=== PATIENT | female | born 1940 | race Caucasian/White ===

== ENCOUNTER → 2019-04-16 | Outpatient (CLI) | payer OTHER ==
[~2019-04-16] VITALS: Ht 167.6 cm; Wt 79.4 kg
[~2019-04-16] MED LIST: CARDIZEM CD120 MG PO; CENTRUM SILVER1 EAC4 PO; CENTRUM SILVER1 EAC6 PO; CLOPIDOGREL75 MG PO; ECOTRIN325 MG PO; ELIQUIS5 MG PO; FENTANYL PA12 MCG/HR TP; FISH OIL 1,001000 M2 PO; FLOMAX0.4 MG PO; GABAPENTIN100 MG PO; HYDROCODON-ACE1 EAC5 PO; KEFLEX500 MG PO; LASIX 40 MG TAB40 M2 PO; LEVOXYL50 MCG PO; LEVOXYL75 MCG PO; LIPITOR 20 MG T20 M1 PO; LOPRESSOR 12.12.5 MG PO; LOPRESSOR25 PO; NEURONTIN 400400 M1 PO; NEURONTIN300 MG PO; NORTRIPTYLINE H25 M3 PO; POTASSIUM20 PO; SENNA PLUS TAB1 EACH PO; SORINE 80 MG TA80 M1 PO; SYNTHROID88 MC1 PO; TRAMADOL 50 MG50 MG PO; TYLENOL EXTRA500 MG PO; VITAMIN E400 UNIT PO; VITAMINC500 PO
[2019-04-16 07:06] VITALS: BP 172/75
[2019-04-16 07:14] LABS: HEMATOCRIT 47.3 % (37.0-47.0); HEMOGLOBIN 14.4 gm/dL (12.0-15.0); MCH 23.2 pg (26.0-34.0); MCHC 30.4 g/dL (28.0-37.0); MCV 76.5 fL (80.0-100.0); PLATELET COUNT 247 thou/uL (150-400); RBC 6.19 mil/uL (4.20-5.00); RDW 18.5 % (10.5-14.5); WBC 22.3 thou/uL (4.0-11.0)
[2019-04-16 07:20] LABS: CALCIUM 9.3 mg/dL (8.5-10.1); CREATININE 0.7 mg/dL (0.6-1.0); POTASSIUM 4.7 mmol/L (3.5-5.1)
[2019-04-16 11:33] LABS: ALBUMIN 4.4 g/dL (3.4-5.0); DIRECT BILIRUBIN 0.2 mg/dL (<0.1-0.3); TOTAL BILIRUBIN 0.6 mg/dL (<0.1-1.0); TOTAL PROTEIN 7.1 g/dL (6.4-8.2)
[2019-04-16 11:38] LABS: APTT 33.3 Seconds (24.5-32.8); INR 1.2; PROTIME 12.4 Seconds (9.3-11.4)
[2019-04-16 11:39] LABS: ABSOLUTE NEUTROPHILS 15.8 thou/uL (1.4-8.2); PLATELET ESTIMATE NORMAL
[2019-04-16 12:30] VITALS: BP 159/82
[2019-04-16 12:33] VITALS: BP 172/82
[2019-04-16 12:35] VITALS: BP 166/84
[2019-04-16 12:40] VITALS: BP 166/83
[2019-04-16 12:45] VITALS: BP 175/86
[2019-04-16 14:15] LABS: URINE BILIRUBIN NEGATIVE (Negative); URINE BLOOD NEGATIVE (Negative); URINE CLARITY CLEAR; URINE COLOR YELLOW; URINE GLUCOSE-RANDOM* NEGATIVE (Negative); URINE KETONES NEGATIVE (Negative); URINE LEUKOCYTES-REFLEX NEGATIVE (Negative); URINE NITRITE-REFLEX NEGATIVE (Negative); URINE PROTEIN (DIPSTICK) 2+ (Negative); URINE SPECIFIC GRAVITY 1.015 (1.005-1.035); URINE UROBILINOGEN 0.2 E.U./dl (0.2-1.0)
[2019-04-16 14:28] LABS: BACTERIA-REFLEX 1-9 Few /HPF (None Seen); CASTS None Seen /LPF (None Seen); CRYSTALS None Seen /LPF (None Seen); SQUAMOUS 0-3 Few /LPF (0-3); URINE RBC None Seen /HPF (0-2); URINE WBC-REFLEX None Seen /HPF (0-5)
--- NOTE | 2019-04-17 14:06 | EKG ---
[place] [address] [address] [facility] [place] [address] ELECTROCARDIOGRAM REPORT Name: FILIBERTOVIJAYJAMES [id number] Admission: 04/16/19 Attend Phys: Ovidio Alejandra MD Discharge: Date of : 40 Report #: [id number] THIS REPORT FOR: //name// [facility] Test Date: 2019-04-16 Test Time: 11:25:38 Pat Name: JAMES NIÑO Department: Room: Gender: F Powertrain Design Engineer: Chaparrita MITCHELL : 1940 Requested By: Vinny Le Order Number: [id number] MD: Дмитрий Timmons Measurements Intervals [place] Rate: 61 P: 31 WA: 234 QRS: -10 QRSD: 101 T: 21 QT: 421 QTc: 424 Interpretive Statements Sinus rhythm Prolonged WA interval Probable left atrial enlargement Compared to ECG 08/04/2007 09:21:40 First degree AV block now present Electronically Signed On 04-17-2019 14:06:16 CDT by Дмитрий Timmons [email or web address] <ELECTRONICALLY SIGNED> By: Дмитрий Timmons MD 04/17/19 1406 1125 1125 Дмитрий Timmons MD /[facility]
--- NOTE | 2019-04-17 14:38 | HC ---
[facility] [place] [address] CONSULTATION Name: JAMES NIÑO Room #: REG BRENDAN GonzalesBrenda#: [id number] Admission: 04/16/19 Attend Phys: Ovidio Alejandra MD Discharge: Date of : 40 Report #: [id number] THIS REPORT FOR: //name// CC: Ovidio Norris DATE OF SERVICE: 04/16/2019 We were asked by Dr. Alejandra to see the patient. HISTORY OF PRESENT ILLNESS: The patient is a 79-year-old with rest pain in the left foot. The patient has a history of peripheral arterial occlusive disease and appears to have had a left femoral to above the knee popliteal bypass with a plastic conduit several years ago. The patient admits to chronic rest pain in the left foot, but this worsened over the last few weeks. 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 This appears to have been done after infection for an artificial ankle prosthesis. PAST MEDICAL HISTORY: Significant for polycythemia vera and atrial fibrillation. MEDICATIONS: Includes Tylenol for pain, Eliquis, Plavix, Lipitor, diltiazem, Neurontin, levothyroxine, sotalol, and tamsulosin. ALLERGIES: The patient denies drug allergies to me. SOCIAL HISTORY: The patient is a former smoker, but quit years ago. FAMILY HISTORY: Father had a precocious heart attack at age 45. REVIEW OF SYSTEMS: GENERAL: No significant weight change or fever. EYES: No vision change. HENT: No headache, no new hearing loss. No sinus problems. CARDIAC: Denies chest pain or palpitations. Does have atrial fibrillation. RESPIRATORY: Denies cough, shortness of breath. GASTROINTESTINAL: No nausea, vomiting, blood in stool. GENITOURINARY: No urgency, frequency, or blood. MUSCULOSKELETAL: Foot pain, but not arthritic in nature. SKIN: No rash or infection. ENDOCRINE: No hot or cold intolerance. No goiter or tremor. NEUROLOGIC: No motor or sensory dysfunction. HEMATOLOGIC: No bruisability or purpura. [facility] [address] [place] [address] CONSULTATION Name: AJMES NIÑO Room #: SABINA Sinclair#: [id number] Admission: 04/16/19 Attend Phys: Ovidio Alejandra MD Discharge: Date of : 40 Report #: [id number] PHYSICAL EXAMINATION: EXTREMITIES: The patient is lying in bed after her arteriogram today, seems to be comfortable. HEENT: Normocephalic. Pupils are round, equal. No arcus, no icterus. NECK: No mass, no bruit. CHEST: Clear. HEART: Rhythm seems to be regular. ABDOMEN: Soft, no mass, no tenderness. EXTREMITIES: We note the right hllgc-qsy-dtdz amputation on the left side. Left femoral pulse is 2+. No popliteal, dorsalis pedis or posterior tibial pulses. Left foot has dependent rubor, but no specific ulceration or gangrene is noted. I reviewed the arteriographic findings with the patient. There is total occlusion of the left superficial femoral artery with reconstitution of the polyp popliteal artery. I recommended a femoral to popliteal bypass with autogenous greater saphenous vein. If this is available, we will perform a vein mapping and also check the patient's P2Y12 for her response to Plavix. I also suggested the patient have Cardiac evaluation prior to lower extremity bypass surgery. Risks and details of bypass surgery were discussed. These include but are not limited to bleeding, infection, anesthesia risks, and of course failure of the graft. Options and alternatives were reviewed. The patient understands all of this and is eager to attempt to address her debilitating symptoms. Thank you for the consult. <ELECTRONICALLY SIGNED> By: Vinny Le MD 04/17/19 1438 1119 0018 Vinny Le MD /nt
== END | disposition home or self-care (01) ==
LOC: CATH 06:13 → SPEC 06:13 → CATH 11:54
PROVIDERS: Nuclear Medicine Nuclear Cardiology; Surgery Vascular Surgery
DX: I73.9 Peripheral vascular disease, unspecified (principal); T82.858A Stenosis of other vascular prosthetic devices, implants and grafts, initial encounter; I70.1 Atherosclerosis of renal artery; Z01.810 Encounter for preprocedural cardiovascular examination; I10 Essential (primary) hypertension; E78.5 Hyperlipidemia, unspecified; I48.91 Unspecified atrial fibrillation; E66.09 Other obesity due to excess calories; E78.00 Pure hypercholesterolemia, unspecified; Z79.01 Long term (current) use of anticoagulants; Z79.899 Other long term (current) drug therapy; Z98.890 Other specified postprocedural states; Z87.891 Personal history of nicotine dependence; Z95.0 Presence of cardiac pacemaker; Z88.2 Allergy status to sulfonamides; Z82.49 Family history of ischemic heart disease and other diseases of the circulatory system; Y83.8 Other surgical procedures as the cause of abnormal reaction of the patient, or of later complication, without mention of misadventure at the time of the procedure

== ENCOUNTER → 2019-05-03 | Outpatient (CLI) | payer OTHER | LOC: NUC 07:50 | DX: I48.91 Unspecified atrial fibrillation (principal); E78.5 Hyperlipidemia, unspecified; I10 Essential (primary) hypertension; Z87.891 Personal history of nicotine dependence; Z79.899 Other long term (current) drug therapy ==

== ENCOUNTER 2019-05-18 05:46 | Inpatient (IN) | payer OTHER ==
[2019-05-07 09:24] LABS: HEMATOCRIT 46.8 % (37.0-47.0); HEMOGLOBIN 14.2 gm/dL (12.0-15.0); MCH 22.9 pg (26.0-34.0); MCHC 30.4 g/dL (28.0-37.0); MCV 75.3 fL (80.0-100.0); PLATELET COUNT 208 thou/uL (150-400); RBC 6.22 mil/uL (4.20-5.00); RDW 19.4 % (10.5-14.5); WBC 22.7 thou/uL (4.0-11.0)
[2019-05-07 09:39] LABS: INR 1.2
[2019-05-07 09:41] LABS: ALBUMIN 4.3 g/dL (3.4-5.0); CALCIUM 9.1 mg/dL (8.5-10.1); CREATININE 0.7 mg/dL (0.6-1.0); POTASSIUM 4.9 mmol/L (3.5-5.1); TOTAL BILIRUBIN 0.6 mg/dL (<0.1-1.0); TOTAL PROTEIN 6.7 g/dL (6.4-8.2)
[2019-05-07 10:00] LABS: URINE BILIRUBIN 2+ (Negative); URINE BLOOD NEGATIVE (Negative); URINE CLARITY CLEAR; URINE COLOR YELLOW; URINE GLUCOSE-RANDOM* NEGATIVE (Negative); URINE KETONES NEGATIVE (Negative); URINE LEUKOCYTES NEGATIVE (Negative); URINE NITRITE NEGATIVE (Negative); URINE PROTEIN (DIPSTICK) 2+ (Negative); URINE SPECIFIC GRAVITY 1.025 (1.005-1.035); URINE UROBILINOGEN 0.2 E.U./dl (0.2-1.0)
[2019-05-07 10:12] LABS: BACTERIA 1-9 Few /HPF (None Seen); CASTS None Seen /LPF (None Seen); CRYSTALS None Seen /LPF (None Seen); SQUAMOUS 0-3 Few /LPF (0-3); URINE RBC None Seen /HPF (0-2); URINE WBC None Seen /HPF (0-5)
[2019-05-07 10:13] LABS: ICTOTEST (BILI CONFIRMATORY) Negative (Negative)
[2019-05-07 10:34] LABS: ABSOLUTE NEUTROPHILS 15.7 thou/uL (1.4-8.2); ANISOCYTOSIS 2+; MICROCYTES 2+; NUCLEATED RBCS 1 /100WBC; PLATELET ESTIMATE NORMAL; POLYCHROMASIA 1+
--- NOTE | 2019-05-07 17:15 | EKG ---
[place] [address] [facility] [facility] [place] [address] ELECTROCARDIOGRAM REPORT Name: JAMES NIÑO Room #: PRE IN [facility].#: [id number] Admission: Attend Phys: Vinny Le MD Discharge: Date of : 40 Report #: [id number] THIS REPORT FOR: //name// [facility] Test Date: 2019-05-07 Test Time: 09:57:11 Pat Name: JAMES NIÑO Department: Room: Gender: F Paper Box Maker: annamarie : 1940 Requested By: Vinny Le Order Number: [id number] MD: Yash Franklin Measurements Intervals [place] Rate: 63 P: 41 HI: 224 QRS: -2 QRSD: 104 T: 36 QT: 413 QTc: 423 Interpretive Statements Sinus rhythm Prolonged HI interval Baseline wander in lead(s) I,III,aVL Compared to ECG 04/16/2019 11:25:38 No significant changes Electronically Signed On 05-07-2019 17:15:26 CDT by Yash Franklin [email or web address] <ELECTRONICALLY SIGNED> By: Yash Franklin MD, [facility] 05/07/19 1715 Yash Franklin MD, [facility] /EPI
[2019-05-18] VITALS (18 sets, daily range): BP systolic 114–149; BP diastolic 39–65
[~2019-05-18] VITALS: Ht 167.6 cm; Wt 36.1 kg
[~2019-05-18 05:46] MED LIST changes: -SENNA PLUS TAB1 EACH PO
[2019-05-18 07:31] LABS: HEMATOCRIT 48.9 % (37.0-47.0); HEMOGLOBIN 14.7 gm/dL (12.0-15.0); MCH 22.6 pg (26.0-34.0); MCV 75.3 fL (80.0-100.0); RBC 6.49 mil/uL (4.20-5.00); RDW 19.3 % (10.5-14.5); WBC 29.6 thou/uL (4.0-11.0)
--- NOTE | 2019-05-18 19:58 | NUR ---
PT ARRIVED FROM PACU AT 1645. PLACED ON MONITOR. HOSPITALIST ROUNDED, WANTS MED REC FROM [facility]. PT CONFUSED, JABBERS AND TRYING TO BE FUNNY WITH ANSWERS. STATES SHE IS LIKE THAT AFTER ANETHSTESIA. UNABLE TO SWALLOW PAIN PILL, USE PRN FENT.
[2019-05-18 20:15] LABS: CREATININE 0.8 mg/dL (0.6-1.0); POTASSIUM 4.1 mmol/L (3.5-5.1)
[2019-05-18 20:16] LABS: HEMATOCRIT 42.5 % (37.0-47.0); MCH 22.4 pg (26.0-34.0); MCV 74.9 fL (80.0-100.0); RBC 5.68 mil/uL (4.20-5.00); RDW 19.1 % (10.5-14.5)
[2019-05-18 20:17] LABS: HEMOGLOBIN 12.7 gm/dL (12.0-15.0)
[2019-05-19] VITALS (27 sets, daily range): BP systolic 101–139; BP diastolic 30–53
[2019-05-19 05:27] LABS: HEMATOCRIT 39.5 % (37.0-47.0); HEMOGLOBIN 11.5 gm/dL (12.0-15.0); MCH 22.2 pg (26.0-34.0); MCHC 29.2 g/dL (28.0-37.0); RBC 5.19 mil/uL (4.20-5.00); RDW 19.3 % (10.5-14.5); WBC 30.8 thou/uL (4.0-11.0)
[2019-05-19 05:50] LABS: CALCIUM 7.6 mg/dL (8.5-10.1); CREATININE 0.7 mg/dL (0.6-1.0); POTASSIUM 4.4 mmol/L (3.5-5.1)
--- NOTE | 2019-05-19 11:15 | NUR ---
Pt was alert but could not tell time correctly. Pt is confused by telling this nurse such as, "Are you looking for ED? I will tell you how to get there." However pt followed the commands appropriately and seemed very forgetful. VSS. Wound vac x2 and ERIN drainage x [address] Dressing CDI. Pt was on restraints x 2 due to picking up the dressings and skin around dressings. 0830- Pt's restraints were off while pt's was at bedside. Pt shared her breakfast w/ . The medical record request for pt was faxed to [facility].
[2019-05-19 12:36] LABS: URINE BILIRUBIN NEGATIVE (Negative); URINE BLOOD NEGATIVE (Negative); URINE CLARITY CLEAR; URINE COLOR YELLOW; URINE GLUCOSE-RANDOM* NEGATIVE (Negative); URINE KETONES NEGATIVE (Negative); URINE LEUKOCYTES-REFLEX TRACE (Negative); URINE NITRITE-REFLEX NEGATIVE (Negative); URINE PROTEIN (DIPSTICK) 1+ (Negative); URINE SPECIFIC GRAVITY 1.025 (1.005-1.035); URINE UROBILINOGEN 0.2 E.U./dl (0.2-1.0)
[2019-05-19 12:47] LABS: BACTERIA-REFLEX None Seen /HPF (None Seen); SQUAMOUS 0-3 Few /LPF (0-3); URINE RBC 3-10 Few /HPF (0-2); URINE WBC-REFLEX 0-5 Rare /HPF (0-5)
[2019-05-19 12:48] LABS: CRYSTALS None Seen /LPF (None Seen); FINE GRANULAR CASTS 0-3 Few /LPF (None Seen)
--- NOTE | 2019-05-19 16:02 | HC ---
[facility] [place] [address] CONSULTATION Name: JAMES NIÑO Room #: 238-P ADM IN M.R.#: [id number] Admission: 05/18/19 Attend Phys: Vinny Le MD Discharge: Date of : 40 Report #: [id number] THIS REPORT FOR: //name// CC: Liliam Le DATE OF SERVICE: 05/19/2019 ATTENDING PHYSICIAN: Vinny Le MD REASON FOR EVALUATION: Postoperative leukocytosis. HISTORY OF PRESENT ILLNESS: Chart reviewed, patient examined. This is a 79-year-old, known history of vasculopathy, also polycythemia, underwent operative reopening of left femoral to popliteal artery bypass with reverse greater saphenous vein and intraoperative arteriogram on 05/18/2019, referral from outpatient, it is notable that previous amputation of the right lower extremity, seen postop day 1, was found to have a markedly elevated white count, initially 29,600, peaked to 39,000, now 99017, as would expected has an elevated red cell count as well. She is mildly encephalopathic. Denies significant amount of pain at this point. She is on supplemental oxygen per nasal cannula, saturation 100%. She is normally not on oxygen. Additional evaluation included urinalysis. She was empirically started on therapy with vancomycin. ALLERGIES: LISTED TO SULFA. CURRENT MEDICATIONS: Include clopidogrel, tamsulosin, vancomycin, levothyroxine, gabapentin, famotidine, diltiazem CD, atorvastatin, p.r.n. analgesics and antiemetics. PAST MEDICAL HISTORY: History of atrial fibrillation, known peripheral vascular disease, polycythemia and hypercholesterolemia. SOCIAL HISTORY: Occasional ethanol, nonsmoker. No illicit drug use. FAMILY HISTORY: Noncontributory. REVIEW OF SYSTEMS: As above. Denies gastrointestinal related complaints. PHYSICAL EXAMINATION: GENERAL: She appears somewhat chronically ill, mildly undernourished. VITAL SIGNS: Temperature 97.7, pulse 67, respirations 15, blood pressure 118/47. SKIN: Warm, dry, no rashes. HEENT: Nasal cannula in place. Normocephalic. Extraocular muscles intact. NECK: Supple. [facility] [address] [place] [address] CONSULTATION Name: JAMES NIÑO Room #: 238-P [facility] IN M.R.#: [id number] Admission: 05/18/19 Attend Phys: Vinny Le MD Discharge: Date of : 40 Report #: [id number] LUNGS: Few scattered coarse breath sounds. Nothing for consolidation. HEART: Irregular. Does have a very pronounced systolic murmur. ABDOMEN: Mildly distended, soft, nontender. EXTREMITIES: Left lower extremity has a superficial wound VAC in place that runs longitudinally and extend to the saphenous vein site as well as the bypass site distally has a drain in place. GENITOURINARY/RECTAL: Deferred. LABORATORY DATA: Initial white count of 29.6. Serial white count last evening 39.0, repeat was 30.8, H and H 11.5 and 39.5, platelets of 201. Electrolytes: Sodium 139, potassium 4.4, chloride 105, bicarbonate is 27, anion gap of 7, BUN and creatinine 21 and 0.7. ASSESSMENT AND PLAN: Leukocytosis in a patient that is postoperative. Per the family, this is not unusual for her. She does not show evidence of early sepsis. There is no focal area of pyogenic infection that I could see. We will check a urinalysis given her gram-positive coverage and liver function test to exclude possibility of a biliary tract issue. Otherwise, we will keep empiric therapy with vancomycin. We will follow the white count. Hopefully, it is trending down. <ELECTRONICALLY SIGNED> By: Rodolfo Sharma MD 05/19/19 1602 0959 1320 Rodolfo Sharma MD /nt
[2019-05-19 17:36] LABS: ALBUMIN 3.3 g/dL (3.4-5.0); DIRECT BILIRUBIN < 0.1 mg/dL (<0.1-0.3); SGOT 60 U/L (15-37); SGPT 11 U/L (30-65); TOTAL BILIRUBIN 0.4 mg/dL (<0.1-1.0); TOTAL PROTEIN 5.4 g/dL (6.4-8.2)
[2019-05-20] VITALS (24 sets, daily range): BP systolic 106–156; BP diastolic 32–78
--- NOTE | 2019-05-20 00:30 | NUR ---
LATE ENTRY AT 2315 PT EXTREMELY RESTLESS THROWING LEGS OVER SIDE OF BED. WANTING TO GET OUT OF BED AND STILL C/O OF PAIN ALL OVER. PARKING ENFORCER NOTIFIED. ATIVAN 1 MG IV AND FENTANYL 50 MCG GIVEN ORDERED. WILL CONT TO MONITOR CLOSELY.
--- NOTE | 2019-05-20 06:27 | NUR ---
190: Received report from ALEXANDER Tse and assumed patient care. Patient is AAOx2 (name and situation) and noted to be on 2 L NC at this time. 2109: Patient medicated at this time for complaints of pain 02/24 along with scheduled meds. 2339: Patient resting with eyes shut and in no apparent distress. Will continue to monitor closely. 0115: Patient is lying in be awake. No distress is noted. Purewick cather placed on patient at this time. 0324: Patient is very anxious at this time and is stating she has pain in her right shoulder. Patient given hydrocodone at this time. 0522: Patient is awake and is remembering more about place and time after being reoriented several times throughout this shift. 0700: Report given to oncoming RN. Care relinquished.
[2019-05-20 07:26] LABS: HEMATOCRIT 37.1 % (37.0-47.0); MCH 22.4 pg (26.0-34.0); MCHC 29.6 g/dL (28.0-37.0); MCV 75.7 fL (80.0-100.0); PLATELET COUNT 184 thou/uL (150-400); RDW 19.1 % (10.5-14.5); WBC 21.9 thou/uL (4.0-11.0)
[2019-05-20 08:58] LABS: ABSOLUTE NEUTROPHILS 15.8 thou/uL (1.4-8.2); METAMYELOCYTES 3 %; MYELOCYTES 6 %
[2019-05-20 09:00] LABS: TEARDROPS 1+
[2019-05-20 09:01] LABS: ANISOCYTOSIS 2+; HYPOCHROMASIA 2+; OVALOCYTES 1+; POLYCHROMASIA SLIGHT
[2019-05-20 09:03] LABS: MICROCYTES 1+
--- NOTE | 2019-05-20 18:09 | NUR ---
ASSUMED CARE @ 0700 05/20/19, PT ASSESSMENTS AND VSS COMPLETE PER ICU ORDERS, PT NOW HAS CCU ORDERS, PT HAD AN UNEVENTFUL DAY, HERE DURING DAY SHIFT TO VISIT WITH. RESTRAINTS DC'D @ 1500, PT NOT REACHING FOR OR PICKING AT THE SURGICAL SITE. PLAN OF CARE- CONT TO MONITOR.
--- NOTE | 2019-05-20 20:00 | NUR ---
PTS STATES THAT THEY BOTH LOVE OUR HOS[facility] AND THE DOCTORS AND NURSES ALSO TAWANDA THE FOOD!
[2019-05-21] VITALS (12 sets, daily range): BP systolic 99–170; BP diastolic 33–77
--- NOTE | 2019-05-21 | NUR ---
LATE ENTRY 2315 PT EXTREMELY RESTLESS AND THROWING LEFT LEG OVER SIDE RAIL STILL C/O OF PAIN ALL OVER BODY JOINTS. MILL TENDER NOTIFIED. ATIVAN AND FENTANYL GIVEN PER ORDER. WILL CONT TO MONITOR CLOSELY. 2345 PT SLEEPING RESTING QUIETLY
--- NOTE | 2019-05-21 05:37 | NUR ---
PT AGAIN IS EXTREMELY RESTLESS AGAIN AND TRYING TO GET OUT OF BED. ATIVAN 1 MG IV REPEATED PER ORDER. TOTAL OF 100 CC FROM BILAT ERIN DRAINS 550 CC UO VIA EXTERNAL CATH. WOUND VAC DRESSUBNG INTACT. LEFT PEDAL PULSE DOPPLED. REMAINS IN PACED RHYTHM. WILL CONT TO MONITOR.
[2019-05-21 08:59] LABS: HEMOGLOBIN 10.6 gm/dL (12.0-15.0); MCH 22.4 pg (26.0-34.0); MCHC 29.3 g/dL (28.0-37.0); MCV 76.6 fL (80.0-100.0); RBC 4.7 mil/uL (4.20-5.00); RDW 19.3 % (10.5-14.5); WBC 21.3 thou/uL (4.0-11.0)
[2019-05-21 09:12] LABS: CREATININE 0.5 mg/dL (0.6-1.0); POTASSIUM 3.9 mmol/L (3.5-5.1)
--- NOTE | 2019-05-21 14:42 | NUR ---
CM ASSESSMENT: CASE OPENED FOR DC PLANNING. CLINICAL INFO REVIEWED. POD # 3 LEFT FEM POP. HX PAD WITH RIGHT BKA AND USES PROSTHESIS. OTHER DME INCLUDE CANE, WALKER MANUNLA AND POWER WHEEL CHAIRS. PT LIVES WITH SPOUSE IN HOUSE. INDEPENDENT WITH ADLS, USES POWER CHAIR IN HOUSE, MANUAL W/C IN COMMUNITY. ABLE TO AMBULATGE WITH PROSTHESIS AND CAN OR WALKER SHORT DISTANCES. NO PREVIOUS HH. PREVIOUS STAY AT [facility] AFTER AMPUTATION. REVIEWED LIKELY NEED FOR REHAB AND OPTIONS FOR ACUTE REHAB INCLUDING [facility], [facility], [facility] AND [facility]. PT AND SPOUSE AGREEABLE TO REFERRAL FOR 5N. DISCUSSED WITH CTS PA THIS AM, DRAINS MAY COME OUT 05/19/19. RN UPDATED.
--- NOTE | 2019-05-21 14:46 | NUR ---
PATIENT SEEN BY DR. OSORIO FOR ACUTE REHAB CONSULT THIS DATE. PATIENT IS A CANDIDATE FOR 5N. WILL CONTIUE TO FOLLOW. PATIENT CAN BE ADMITTED WHEN PATIENT IS MEDICALLY STABLE, RESTRAINT FREE, SAFE TO BE IN A ROOM WITOUT CLOSE MONITORING AND NO LONGER ON IV ATIVAN. RECONCILIATION SPECIALIST GLENROY. THANK YOU FOR THIS REFERRAL.
--- NOTE | 2019-05-21 18:08 | NUR ---
pt is A&OX1 ( PERSON ), pt can follow some commands, pt is confused , pt is continuing wound care and pain management, pt's vs are stable, pt denies n/v and pain at this time.
--- NOTE | 2019-05-21 20:45 | NUR ---
PT EXTREMELY RESTLESS. WALKED IN ROOM PT HAD PULLED OFF WOUND VAC DRESSING DR VAZQUEZ CALLED. LEFT ORDERS FOR HALDOL. DRESSINGS PLACED ON LEFT LEG. WILL CONT TO MONITOR.
[2019-05-22] VITALS (9 sets, daily range): BP systolic 105–157; BP diastolic 40–97
[2019-05-22 05:40] LABS: HEMATOCRIT 40.5 % (37.0-47.0); HEMOGLOBIN 12.2 gm/dL (12.0-15.0); MCH 22.5 pg (26.0-34.0); PLATELET COUNT 194 thou/uL (150-400); RBC 5.41 mil/uL (4.20-5.00); RDW 19.4 % (10.5-14.5); WBC 29.1 thou/uL (4.0-11.0)
[2019-05-22 05:58] LABS: CALCIUM 8.2 mg/dL (8.5-10.1); CREATININE 0.5 mg/dL (0.6-1.0); POTASSIUM 3.9 mmol/L (3.5-5.1)
[2019-05-22 06:52] LABS: ABSOLUTE NEUTROPHILS 19.5 thou/uL (1.4-8.2); NUCLEATED RBCS 1 /100WBC
[2019-05-22 06:53] LABS: ANISOCYTOSIS 2+; HYPOCHROMASIA 2+; MICROCYTES 2+; PLATELET ESTIMATE NORMAL; POIKILOCYTOSIS 2+; POLYCHROMASIA 1+
--- NOTE | 2019-05-22 13:08 | O ---
[facility] [place] [address] OPERATIVE REPORT Name: JAMES NIÑO Room #: 238-P ADM IN M.R.#: [id number] Admission: 05/18/19 Attend Phys: Vinny Le MD Discharge: Date of : 40 Report #: [id number] THIS REPORT FOR: //name// CC: Liliam Le DATE OF SERVICE: 05/18/2019 PREOPERATIVE DIAGNOSIS: Lower extremity arterial occlusive disease, left superficial femoral artery occlusion. POSTOPERATIVE DIAGNOSIS: Lower extremity arterial occlusive disease, left superficial femoral artery occlusion. OPERATION: Reoperative left femoral to popliteal artery bypass with reversed autogenous greater saphenous vein and intraoperative arteriogram. SURGEON: Vinny Le MD LEHR CUTTER: JAIRO Martinez. ANESTHESIA: General. INDICATIONS: The patient is a 79-year-old with lower extremity arterial occlusive disease. The patient has already had a right gjcne-vsn-ggyq amputation. The patient appears now with a history of rest pain and arteriography shows a total occlusion of her left superficial femoral artery. The patient had a previous femoral to above the knee popliteal artery bypass with some sort of artificial prosthetic material and this failed. FINDINGS AND TECHNIQUE: After general anesthesia was established, an incision was made below the knee to expose the saphenous vein at this point. Once this was done, the incision was deepened to expose the popliteal artery below the knee. An incision was made in the groin to expose the proximal end of the vein. We also exposed the common femoral artery. This was a reoperative operation and there was intense scarring around the area of the old prosthesis. We exploited the inguinal ligament and went above the old prosthesis at a more proximal point on the femoral artery. The remainder of the greater saphenous vein was harvested through interrupted incisions and heparin was given and the vein was excised and prepared for use as a conduit. The reversed vein was sewn in end-to-side fashion with the common femoral [facility] [address] [place] [address] OPERATIVE REPORT Name: JAMES NIÑO Room #: 238-P [facility] IN ..#: [id number] Admission: 05/18/19 Attend Phys: Vinny Le MD Discharge: Date of : 40 Report #: [id number]. The vein was then pressurized, all and any bleeding points were treated. The vein was brought through the saphenous vein harvest incisions, taking care not to twist it and then the distal end of the saphenous vein was sewn to below the knee popliteal artery. Flow was established through this anastomosis. The Doppler was used to ascertain good flow. At this point, an arteriogram was done. A 21 butterfly needle was used to inject contrast serially and we inspected the vein to make sure that it was both patent with no areas of twisting and there was no stenosis at the distal anastomotic site and good runoff. Satisfied with the arteriogram, protamine was given to reverse the heparin. Hemostasis was ascertained in all areas, 19 Fermin drains were brought out through the upper and lower extent of the operation and they were brought through the subcutaneous tunnel. The wounds were closed in layers with Vicryl and Monocryl at the groin and nylon and skin clips for the other incisions. A good Doppler signal was audible once again prior to finishing the closure. All counts reported as correct. The patient was taken to the recovery area in good condition with what appeared to be hyperemic foot. All counts reported as correct. <ELECTRONICALLY SIGNED> By: Vinny Le MD 05/22/19 1308 1658 1740 Vinny Le MD /nt
--- NOTE | 2019-05-22 18:20 | NUR ---
No event today. Pt remains stable in this shift. Poor appitite taking only a few bite of foods. No s/sx of any aspiration indicates. Wound vac on Left leg remains seal,indicated mini airleak. Drainage from 2 ERIN became community life director serosanguneous. Continue to function properly. Pain had been adequated control. PT/OT visited today ; see their progress. Continue to monitor her closely.
[2019-05-23 00:04] VITALS: BP 146/65
[2019-05-23 03:41] LABS: HEMATOCRIT 42.5 % (37.0-47.0); HEMOGLOBIN 12.8 gm/dL (12.0-15.0); MCH 22.6 pg (26.0-34.0); MCV 75.3 fL (80.0-100.0); RBC 5.65 mil/uL (4.20-5.00); RDW 19.3 % (10.5-14.5); WBC 26.4 thou/uL (4.0-11.0)
[2019-05-23 04:02] VITALS: BP 169/83
[2019-05-23 04:16] LABS: CALCIUM 8.2 mg/dL (8.5-10.1); CREATININE 0.6 mg/dL (0.6-1.0)
[2019-05-23 08:01] VITALS: BP 153/60
--- NOTE | 2019-05-23 09:38 | NUR ---
FOLLOWING FOR DC PLANNING. CLINICAL INFO REVIEWED. DISCUSSED WITH CTS PA, PT AND HER SPOUSE. PT IS MORE ALERT AND CLEAR MENTALLY TODAY. BRIEF RESTRAINT USE OVER 24 HRS AGO. 5N ACUTE REHAB HAS ACCEPTED PT AND HAVE TENTATIVE OPEN BED (PLANNED DC FROM 5N 05/24/19) TOMORROW. PT AND SPOUSE AGREEABLE TO 5N STAY. CTS PA UPDATED ON 5N BED AVAILABILITY. RN UPDATED.
[2019-05-23 11:39] VITALS: BP 139/75
--- NOTE | 2019-05-23 16:42 | NUR ---
ASSESSMENTS AND INTERVENTIONS DOCCUMENTED. PATIENT ALERT AND ORIENTED BUT STILL SHOWING SIGNS OF CONFUSION. AT BEDSIDE. CARDIOLOGY IN AND PATIENT TRANSFERRED TO CHAIR BY PT. PATIENT TOLERATING CHAIR BUT WANTING TO GET OUT OF THE CHAIR. PATIENT TRANSFERRED BACK TO BED AND IS RESTING QUIETLY. [facility]. THE PLAN OF CARE IS TO TRANSFER TO INPATIENT REHAB.
[2019-05-23 20:01] VITALS: BP 150/90
[2019-05-24] VITALS: BP 153/125
[2019-05-24 04:01] VITALS: BP 120/59
--- NOTE | 2019-05-24 05:29 | NUR ---
Received report from ALEXANDER Adams and assumed patient care at 1900. Patient oriented at the beginning of shift but subsequent assessments found patient to be very confused. Patient did not sleep at all throughout this shift and PRN Haldol was given twice. Patient found to pull out IV and was attempting to pull out the LLQ abdominal ERIN drain. Patient attempted several times to get out of the bed and had her legs throwed over the side rail. Patient also screamed out several times for her . Patient reoriented by this RN several times to no avail. VS remained remained stable and no apparent distress was noted.
[2019-05-24 08:02] VITALS: BP 131/70
[2019-05-24] MEDS ORDERED: SENNA PLUS TAB1 EACH PO (08:14)
[2019-05-24 09:49] VITALS: BP 131/70
--- NOTE | 2019-05-24 11:06 | NUR ---
REPORT CALLED TO [facility] ON 5N REHAB FLOOR. PATIENT MOVED TO RM 505 ACCOMPANIED BY . BELONGINGS WITH PATIENT INCLUDING PROSTHESIS AND WHEELCHAIR.
--- NOTE | 2019-05-29 12:00 | HC ---
[facility] [place] [address] CONSULTATION Name: JAMES NIÑO Room #: 238-P [facility] IN M.R.#: [id number] Admission: 05/18/19 Attend Phys: Vinny Le MD Discharge: 05/24/19 Date of : 40 Report #: [id number] THIS REPORT FOR: //name// CC: Liliam Le DATE OF SERVICE: 05/21/2019 HISTORY OF PRESENT ILLNESS: The patient is a 79-year-old white female who was admitted with rest pain involving her left foot. She has severe peripheral arterial disease. She had had a prior left fem-pop bypass. She underwent a new left fem-pop bypass on 05/18/2019. Her course has been complicated by confusion, disorientation and she is followed by Internal Medicine, noted to have an acute toxic metabolic encephalopathy. There was thought to likely be some ICU psychosis/multiple comorbid contributors. She has had restraints that were in place and was given IV Ativan earlier this morning. Infectious Disease is holding off on antibiotics as they note she has had appropriate perioperative antibiotics and would continue to observe off antibiotics. We are seeing her in rehabilitation medicine consultation. She has a prior right below knee amputation apparently an infection that developed and had had a prior artificial ankle prosthesis. She does have a right below knee amputation prosthesis. She has had prior left total knee replacement and has had prior left hip surgery. She has a history of polycythemia vera and has a history of atrial fibrillation. PAST SURGICAL HISTORY: As noted above. MEDICATIONS: Please see the full medication listing. FAMILY HISTORY: Mother had cancer. SOCIAL HISTORY: Lives with her , house, no steps. She has a power manual wheelchair as well as a power wheelchair. She had used the roller walker and her prosthesis and was able to ambulate short distances. REVIEW OF SYSTEMS: She is disoriented and confused. Did not offer any current complaints of chest pain, shortness of breath, and abdominal discomfort. PHYSICAL EXAMINATION: GENERAL: A 79-year-old white female seen in the intensive care unit. She did not know which hospital she was in. NEUROLOGIC: She is somewhat fidgety, trying to move in bed and sit up. She does follow basic 1 step commands and will tend to defer to her for answers. VITAL SIGNS: Temperature is 98.3, pulse 78, respirations 14, blood pressure 135/53. She is on nasal prong O2, currently on 2 liters. HEENT: Facies appeared symmetric. [facility] [address] [place] [address] CONSULTATION Name: JAMES NIÑO Room #: 238-P [facility]#: [id number] Admission: 05/18/19 Attend Phys: Vinny Le MD Discharge: 05/24/19 Date of : 40 Report #: [id number] EXTREMITIES: She has a history of prior bilateral shoulder rotator cuff tears treated nonsurgically. She has definite decreased shoulder abduction with gentle range of motion. Distally, she has better movement of both elbow, wrist and hand, probably at least a grade 3+/5. Upon examination of her lower extremities, she has the old right below knee amputation. No distal breakdown is noted. Left lower extremity, she does have the wound VAC in place. She can dorsiflex that left ankle. Functionally, she has been max assist supine to sit. She has done some sitting edge of bed, max assist. ASSESSMENT: A 79-year-old white female with the following problem list: 1. Toxic metabolic encephalopathy. 2. Rest pain with severe peripheral arterial disease, status post left fem-pop bypass. 3. Prior right below knee amputation. 4. History of permanent pacemaker. 5. Bilateral shoulder prior rotator cuff tears. 6. Hypertension. 7. Hyperlipidemia. PLAN: The patient needs to be restrained free for at least 24 hours and also needs to be off the IV Ativan. Would anticipate she should be an acute [address] [place] [address] inpatient rehabilitation candidate as she further medically stabilizes and cognitively clears. We will be glad to follow along with you. <ELECTRONICALLY SIGNED> By: Ovidio Garrison MD 05/29/19 1200 [id number] Ovidio Garrison MD /nt
== END 2019-05-24 10:30 | DRG 252 ==
LOC: ICU 05:46 → TBA 05:46 → PRE 08:38 → ICU 16:36
PROVIDERS: Internal Medicine; Nurse Practitioner Acute Care; Physician Assistant; Specialist; ADMIT Surgery Vascular Surgery
PROC: 041L0ZL Bypass Left Femoral Artery to Popliteal Artery, Open Approach (ICD-10-PCS; principal; 2019-05-18)
DX: I77.1 Stricture of artery (principal); G92 Toxic encephalopathy; I48.91 Unspecified atrial fibrillation; E78.00 Pure hypercholesterolemia, unspecified; D72.829 Elevated white blood cell count, unspecified; I73.9 Peripheral vascular disease, unspecified; M75.102 Unspecified rotator cuff tear or rupture of left shoulder, not specified as traumatic; M75.101 Unspecified rotator cuff tear or rupture of right shoulder, not specified as traumatic; E78.5 Hyperlipidemia, unspecified; I10 Essential (primary) hypertension; E03.9 Hypothyroidism, unspecified; D64.9 Anemia, unspecified; R73.9 Hyperglycemia, unspecified; K59.00 Constipation, unspecified; R13.10 Dysphagia, unspecified; Z88.2 Allergy status to sulfonamides; Z89.511 Acquired absence of right leg below knee; Z95.0 Presence of cardiac pacemaker; Z79.899 Other long term (current) drug therapy
CPT/HCPCS: 10078; 10203; 47375; 48888; 50010; 50101; 50331; 50382; 50386; 50455; 50643; 50953; 50970; 51412; 51481; 51751; 56524; 56526; 56527; 56528; 56531; 56534; 56668; 56682; 56760; 57092; 57242; 62110; 62900; 65090; 70005

== ENCOUNTER 2019-05-23 14:17 | Inpatient (IN) | payer OTHER ==
[~2019-05-23] VITALS: Ht 167.6 cm; Wt 88.1 kg
[2019-05-24] MEDS ORDERED: SENNA PLUS TAB1 EACH PO (08:14)
[2019-05-24 11:21] VITALS: BP 129/77
--- NOTE | 2019-05-24 11:22 | NUR ---
1030 PATIENT ADMITTED TO [place] [address]. PATIENT IS ALERT AND ORIENTED TO PERSON, MONTH, YEAR, DAY OF WEEK. PATIENT MOVES LEFT LOWER EXTREMITY, RIGHT UPPER EXTREMITY. PATIENT C/O PAIN TO HER RIGHT WRIST AND SHOULDER. PATIENT HAS ERIN IN LEFT UPPER QUAD 50 CC OF SEROSANG DRAINAGE. ERIN IN LEFT LOWER LEG HAD 25 CC OF BLOODY DRAINAGE. PATIENT HAS WOUND VAC TO LEFT GROIN AREA AND LEFT LEG. PATIENT HAS LEFT PEDAL PULSE. PATIENT HAS S.L. IN HER RIGHT UPPER ARM. PATIENT ABD IS SOFT WITH BSX4. PATIENT VOIDED 300 ANNE COLORED URINE PER BEDPAN. PT/OT/ST EVAL TO BE DONE TODAY. FALL AND SAFETY PROTOCOLS IN PLACE. C/O PAIN IN HER LEFT LEG AND RIGHT WRIST AND SHOULDER. THERAPY EVALS IN PROGRESS. IN ROOM. CALL LIGHT IN REACH. WILL CONTINUE TO MONITER.
[2019-05-24 20:26] VITALS: BP 119/76
--- NOTE | 2019-05-24 22:51 | NUR ---
PT ASSESSMENT DONE AND VSS. MED GIVEN AND WELL TOLERATED. FALL PRECAUTIONS IN PLACE. 2 ERIN DRAINS AND 2 WOUND VACS PATENT AND DRAINING. HOURING ROUNDING. CALL LIGHT IN REACH. WILL CONTINUE TO MONITOR. AT BS FOR PART OF THE EVENING.
[2019-05-25 05:01] LABS: HEMATOCRIT 47.2 % (37.0-47.0); MCH 22.9 pg (26.0-34.0); MCHC 29.7 g/dL (28.0-37.0); RBC 6.13 mil/uL (4.20-5.00); RDW 20.3 % (10.5-14.5); WBC 31.3 thou/uL (4.0-11.0)
[2019-05-25 05:17] LABS: CALCIUM 8.7 mg/dL (8.5-10.1); CREATININE 0.3 mg/dL (0.6-1.0)
[2019-05-25 05:18] LABS: POTASSIUM 4.7 mmol/L (3.5-5.1)
[2019-05-25 08:28] VITALS: BP 142/90
--- NOTE | 2019-05-25 13:00 | NUR ---
chart review. pt up in bed with spouse marino at beside. pt and spouse live in house, have ramp if needed. no stair inside that she has to do, all on main living. marino cooks, cleans and laundry. have house keeper that comes q 2 weeks. pat manages her own medication. has prosthesis for rbka, cane, walker, manual wc, powered wc, and hospital bed, shower bench. had hh in past with [facility], been to [facility] in past as well. pt is a & o with some confusion and forgetfulness, able to make her needs know. intro to transition of care, and team meetings.
--- NOTE | 2019-05-25 16:30 | NUR ---
ASSUMED CARES AT 0700. PT ALERT AND ORIENTED*3, FORGETFUL AND AT TIMES CONFUSED. C/O LLE PAIN, TYLENOL ADMINISTERED NEEDED. VITALS REMAIN STABLE. WOUND VACS ON LEFT GROIN AND LEFT LEG REMAIN INTACT AND PATENT. ERIN DRAINS ON LEFT LOWER ABDOMEN AND LEFT LEG REMAIN INTACT AND PATENT, >20CC OF SEROUSANGUINOUS DRAINAGE NOTED. PT UP WITH 2 MAX ASSIST, PIVOT TRANSFERS AND TOLERATED WELL. TOOK HER PILLS WHOLE IN THIN LIQUIDS AND TOLERATED WELL. REPOSITIONED Q2H WHILE IN BED. Q1H VISUAL CHECKS. CALL LIGHT WITHIN REACH. FALL PRECAUTIONS IN PLACE
[2019-05-25 20:38] VITALS: BP 149/61
--- NOTE | 2019-05-26 03:46 | NUR ---
assumed care at approx 1900 evening 05/25. pt lying in bed with head of bed elevated at change of shift. pt alert and oriented however forgetful and somewhat confused at times. wound vacs x2 functioning properly. keven drains x2 to left abdomen and left lower leg intact. pt took hs meds with water toleating well. pt appears to be sleeping soundly with hourly rounding. bed alarm on and call light in reach. will continue to monitor.
[2019-05-26 05:37] LABS: HEMATOCRIT 43.3 % (37.0-47.0); HEMOGLOBIN 13.1 gm/dL (12.0-15.0); MCH 22.5 pg (26.0-34.0); MCHC 30.3 g/dL (28.0-37.0); MCV 74.3 fL (80.0-100.0); RBC 5.83 mil/uL (4.20-5.00); WBC 26.1 thou/uL (4.0-11.0)
[2019-05-26 07:44] VITALS: BP 129/61
--- NOTE | 2019-05-26 08:50 | NUR ---
ASSUMED CARES AT 0700. PT ALERT AND ORIENTED*3, FORGETFUL. SLOW THOUGHT PROCESS. REPORTS SLEPT GOOD. C/O LLE PAIN, PRN TRAMADOLE GIVEN. VITALS REMAIN STABLE ON RA. WOUND VACS ON LEFT GROIN AND LEFT LEG REMAIN INTACT AND PATENT. ERIN DRAINS ON LEFT LOWER ABDOMEN AND LEFT LEG REMAIN INTACT AND PATENT WITH SEROUSANGUINOUS DRAINAGE. PT UP WITH 2 MAX ASSIST, HAS RIGHT BKA. PIVOT TRANSFERS AND TOLERATED WELL. TOOK HER PILLS WHOLE IN THIN LIQUIDS AND TOLERATED WELL. OFFERED SUPPORTIVE CARE. REASSESSMENT PER CHART. MORNING MEDS GIVEN. INCONT BLADDER THIS AM. DISCUSSED ABOUT CARE PLAN. TOILETING FREQUENTLY ON BSC. UP WITH ST EATING BREAKFAST IN ROOM ABLE TO FEED HERSELF SLOWLY. REPOSITIONED Q2H WHILE IN BED. Q1H VISUAL CHECKS. CALL LIGHT WITHIN REACH. FALL PRECAUTIONS IN PLACE. WILL CONTINUE TO MONITOR.
--- NOTE | 2019-05-26 10:12 | H ---
[facility] [place] [address] HISTORY AND PHYSICAL Name: JAMES NIÑO Room #: 504-1 ADM IN M.R.#: [id number] Admission: 05/24/19 Attend Phys: Ovidio Garrison MD Discharge: Date of : 40 Report #: [id number] THIS REPORT FOR: //name// CC: Ovidio Norris DATE OF SERVICE: 05/24/2019 CHIEF COMPLAINT: Weakness. HISTORY OF PRESENT ILLNESS: The patient is a pleasant 79-year-old ambidextrous female, who was admitted to [facility] on 05/18/2019 with resting pain in her left foot. She has severe peripheral arterial disease. In the past, she has had a left fem-pop bypass. She underwent another left fem-pop bypass on the day of admission 05/18/2019. The hospital course was complicated by confusion and disorientation. She was found to have an acute toxic metabolic encephalopathy. She had restraints that were in place and she was treated with Ativan during the admission. She was seen in consultation for Rehabilitation Medicine and found to be an appropriate candidate for this level of care. 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 She does have a below-knee prosthesis. She is seen today in the company of her . He reports that she has had a prior left total knee replacement and has had a prior left hip surgery. She does have a history of polycythemia vera and atrial fibrillation. Secondary to her decline in her overall function and the need for rehabilitation management of her complex medical condition as outlined above, she is now being admitted for comprehensive therapies. Note, I am covering for Dr. Ovidio Garrison and therefore completing this history and physical. Dr. Garrison will return to the Rehabilitation Unit on 05/28/2019. PAST MEDICAL HISTORY: As above, also hypertension, hyperlipidemia, permanent pacemaker, bilateral rotator cuff tears. PAST SURGICAL HISTORY: As above. FAMILY HISTORY: Mother had cancer. MEDICATIONS: Reviewed, please see the written documentation of this history and physical for full details. SOCIAL HISTORY: She and her live in their own home. There are no steps to climb. She does have a power wheelchair at home and also uses a rolling [facility] [address] [place] [address] HISTORY AND PHYSICAL Name: JAMES NIÑO Room #: 504 ADM IN [facility].#: [id number] Admission: 05/24/19 Attend Phys: Ovidio Garrison MD Discharge: Date of : 40 Report #: [id number] walker with her prosthesis on. REVIEW OF SYSTEMS: As above. Specifically, she has some disorientation and confusion. She denies chest pain, shortness of breath, fevers or chills. Otherwise, the remainder of a 12-point review is negative except for what was stated above. PHYSICAL EXAMINATION: GENERAL: No acute distress, well-developed, well-nourished, afebrile. CARDIOVASCULAR: Pulses are 2+ and regular. LUNGS: Aerating well. ABDOMEN: Soft, nontender, nondistended, positive bowel sounds. EXTREMITIES: Left calf is nontender. She has right below knee amputation with no knee contracture identified. MUSCULOSKELETAL: She does have decreased shoulder abduction bilaterally. She has decent senior ecologist strength measured at 4/5 bilaterally. There is a below-knee amputation on the right side as noted without contracture. No distal breakdown. Left lower extremity has a wound VAC in place and a drain. NEUROLOGIC AND PSYCHIATRIC: Coordination is fair to fair minus. Muscle stretch reflexes are 1/4 and symmetric at the brachioradialis. Confusion is identified. She has decreased sensation in the left foot. She was pleasant and cooperative with the exam. No agitation identified. She did provide decent answers to my questions and at times her had to fill in the answers for her. Mood was good. IMPRESSION: Mobility and self-care deficits in a 79-year-old ambidextrous female secondary to: 1. Toxic metabolic encephalopathy. 2. Severe peripheral arterial disease, status post left femoral-popliteal bypass. 3. Prior right below knee amputation, patient has prosthesis with her. 3. History of permanent pacemaker. 4. Bilateral shoulder rotator cuff tears. 5. Hypertension. 6. Hyperlipidemia. 7. Dysphagia. PLAN: 1. Admit to the Rehabilitation Unit for comprehensive therapies. 2. Dr. Garrison will return on 05/28/2019. 3. Discussed the rehabilitation care plan in detail with her and her . 4. Consultations to Internal Medicine, Vascular Surgery. POST-ADMISSION PHYSICIAN EVALUATION: A post-admission physician evaluation has been completed. There are no relevant changes since the preadmission screening. [address] [address] HISTORY AND PHYSICAL Name: JAMES NIÑO Room #: 504-1 ADM IN ..#: [id number] Admission: 05/24/19 Attend Phys: Ovidio Garrison MD Discharge: Date of : 40 Report #: [id number] The patient has a prior medical history as detailed above. Her premorbid function was that she was able to ambulate modified independently with a front-wheeled walker for short distances and the use of a prosthesis for the right lower extremity. She does have family assistance for ADLs and IADLs. She has an appropriate diagnosis for this level of care. She has many comorbidities including the right below-knee amputation. The medical necessity is such that postoperative care will need to be administered with Wound Care and the management of a wound VAC. Infectious Disease may need to be involved as well to manage her postoperative condition should infection become an issue. She does show the ability to tolerate therapies and is very appropriate for this level of care to work on her discharge goals, which are to return to the home setting safely. INDIVIDUALIZED OVERALL PLAN OF CARE: No change noted from the preadmission screen. Her estimated length of stay is approximately 14 days. She has a good medical prognosis for recovery. It is anticipated that continued wound care will need to be performed and management of her cognitive state. Swallow function will need to be followed closely. It is anticipated that she will reach a level of modified independence again with a front-wheeled walker to ambulate short distances and be able to perform basic activities of daily living and return home with her . She will have intensive therapies through physical, occupational, and speech therapy at least 3 hours a day at least 5 days per week and the frequency of these therapies will be 5 days a week. She will have a total duration of at least 14 days of inpatient rehabilitation during the stay and she will have comprehensive therapies through physical, occupational, and speech therapies. <ELECTRONICALLY SIGNED> By: Pedro Swain DO 05/26/19 [id number] Pedro Swain, DO /nt
[2019-05-26 19:45] VITALS: BP 145/73
--- NOTE | 2019-05-27 02:00 | NUR ---
ASSUMED CARE AT APPROX 1900 EVENING 05/26. PT LYING IN BED WITH HEAD OF BED ELEVATED RESTING AND DOZING OFF AND ON. WOUND VACS X2 IN PLACE FUNCTIONING WITHOUT DIFFICULTY. ERIN DRAIN TO LEFT LOWER ABDOMEN INTACT COMPRESSED. PT TOOK HS MEDS WITH WATER TOLERATING WELL. PT APPEARS CONFUSED AT TIMES BUT EASILY REDIRECTED. PT APPEARS TO BE SLEEPING SOUNDLY WITH HOURLY ROUNDING CHECKS. BED ALARM ON AND CALL LIGHT IN REACH. WILL CONTINUE TO MONITOR.
--- NOTE | 2019-05-27 05:37 | NUR ---
pt called out worried that she had pulled out dressing on leg in her sleep. dressing to leg intact but pt had pulled on ERIN bulb dressing at abdomen. drsg damp with serosanguinous drainage and ERIN in place with sutures in place. changed 4x4 and applied new dressing and reinforced with tape. wound vac to left leg functioning no problems.
[2019-05-27 07:31] VITALS: BP 133/65
[2019-05-27 12:15] LABS: URINE BILIRUBIN NEGATIVE (Negative); URINE BLOOD NEGATIVE (Negative); URINE CLARITY CLEAR; URINE COLOR YELLOW; URINE GLUCOSE-RANDOM* NEGATIVE (Negative); URINE KETONES NEGATIVE (Negative); URINE LEUKOCYTES NEGATIVE (Negative); URINE NITRITE NEGATIVE (Negative); URINE PROTEIN (DIPSTICK) 1+ (Negative); URINE SPECIFIC GRAVITY 1.015 (1.005-1.035); URINE UROBILINOGEN 0.2 E.U./dl (0.2-1.0)
[2019-05-27 12:32] LABS: CASTS None Seen /LPF (None Seen); SQUAMOUS 0-3 Few /LPF (0-3); URINE RBC None Seen /HPF (0-2); URINE WBC 0-5 Rare /HPF (0-5)
[2019-05-27 12:33] LABS: AMORPHOUS URATES Moderate /LPF (None Seen); BACTERIA None Seen /HPF (None Seen)
--- NOTE | 2019-05-27 15:50 | NUR ---
ASSUMED CARE OF PT AT 0715. PT IS A&OX4. IS ON ROOM AIR. IS STABLE. DENIES PAIN IN LLE & ABD. PT IS UP WITH SLIDE BOARD TRANSFER TO W/C & MAX ASSIST X 2, STAND PIVOT TO BS, WITH GAITBELT & WALKER. PT HAS RLE BKA, & 2 WOUND VACS ON LLE. DRSG INTACT. ERIN DRAIN TO RIGHT SIDE ABD INTACT. FALL PRECAUTIONS & HOURLY ROUNDING MAINTAINED. PT IS RETAINING URINE. BLADDER SCANNED PT THIS AM; 800 ML SCANNED. PT WAS STRAIGHT CATHED WITH THE HELP OF THE YEAST CAKE CUTTER. PT HAD 1030 ML OUT. UA SENT TO LAB. PT IS CURRENTLY UP IN W/C WATCHING TV WITH SPOUSE. CHAIR ALARM ON. CALL LIGHT WITHIN REACH. WILL CONTINUE TO MONITOR.
--- NOTE | 2019-05-27 17:11 | NUR ---
PT EXPRESSED CONCERNS REGARDING DIET ORDER. THE PT REQUESTED TO HAVE DIET ORDER CHANGED. PT WAS ENCOURAGED TO SPEAK WITH SPEECH THERAPY ON TUESDAY FOR REEVALUATION. WILL CONTINUE TO MONITOR.
[2019-05-27 19:30] VITALS: BP 146/66
--- NOTE | 2019-05-28 02:38 | NUR ---
PT ALERT AND ORIENTED X 4, CONFUSED AT TIMES. WOUND VACS X 2 INTACT TO LEFT LEG. BLADDER SCANNED AT 0145 FOR 918 ML. STRAIGHT CATH AT THAT TIME FOR 825 ML CLEAR YELLOW URINE. SOTALOL HELD AT HS SINCE PULSE WAS 62. LLQ ERIN DRAIN INTACT WITH SEROSANGUINOUS DRAINAGE. PT DENIES PAIN OR DISCOMFORT. BED ALARM ON FOR SAFETY. PT APPEARS TO BE SLEEPING ON HOURLY ROUNDS.
[2019-05-28 05:43] LABS: HEMATOCRIT 40.4 % (37.0-47.0); HEMOGLOBIN 12.2 gm/dL (12.0-15.0); MCH 22.7 pg (26.0-34.0); MCHC 30.2 g/dL (28.0-37.0); RBC 5.38 mil/uL (4.20-5.00); RDW 20.2 % (10.5-14.5); WBC 27.8 thou/uL (4.0-11.0)
[2019-05-28 07:45] VITALS: BP 156/66
[2019-05-28 07:57] VITALS: BP 156/66
--- NOTE | 2019-05-28 11:05 | NUR ---
ASSUMED CARE OF PT AT 0715. REPORTS DIDN'T SLEEP LAST NIGHT. BS 404 CC AT 0800 HAS 404CC, PT SAID SHE CAN'T URINATE NOW. STRAIGHT CATH BEFORE PT GOT UP FOR THERAPY HAS 300CC CLEAR URINE OUT. UA WAS NEGATIVE YESTERDAY. ON FLOMAX DAILY. NOTIFIED AIDE ABOUT INSOMIA AND INDWELLING CATH NEXT TIME IF BS ABOVE 500CC. PT DOESN'T LIKE PUREED DIET, REFUSED TO EAT THIS AM, GAVE PT SNACK, PUDDING. HAD VIDEO SWALLOWING THIS AM AND NOTICED DIET CHANGE TO MECHANICAL SOFT NOW. PT IS HAPPY ABOUT THAT. PT IS A&OX4. VSS ON RA. C/O LLE 12/25, GAVE PRN TRAMADOL PRIOR THERAPY. ABD DRESSING SOAKED WITH LIGHT RED FLUID. HAD 70CC FROM ERIN. DRESSING CHANGED. PT IS UP WITH SLIDE BOARD TRANSFER TO W/C & MAX ASSIST X 2, STAND PIVOT TO [facility], WITH GAITBELT & WALKER. PT HAS RLE BKA, & 2 WOUND VACS ON LLE. DRSG INTACT. ERIN DRAIN TO RIGHT SIDE ABD INTACT. FALL PRECAUTIONS & HOURLY ROUNDING MAINTAINED. SPOUSE AT BEDSIDE. OFFERED SUPPORTIVE CARE, ENCOURAGE PT TO VOICE HER NEEDS. MEDS WITH THIN LIQUID ONE AT THE TIME. CONTINUE TO BE ON IV ABT SCHEDULE, IV SITE C/D/I. REASSESMENT PER CHART. LAST BM WAS YESTERDAY. PT IS IN GOOD SPIRIT. AND GRATEFUL TO STAFF FOR GOOD CARE. CHAIR ALARM ON. CALL LIGHT WITHIN REACH. WILL CONTINUE TO MONITOR.
[2019-05-28 20:18] VITALS: BP 145/63
--- NOTE | 2019-05-28 23:07 | NUR ---
PT ASSESSMENT DONE AND VSS. MEDICATION GIVEN AND VSS. FALL PRECAUTIONS IN PLACE. HOURLY ROUNDING. CALL LIGHT IN REACH. SLEEPING ON AND OFF. WILL CONTINUE TO MONITOR.
--- NOTE | 2019-05-29 04:33 | NUR ---
PT TRIED TO URINATE ON THE BS COMMODE WITHOUT SUCCESS, THEN WAS PLACED ON THE BEDPAN FOR 20 MINS ALSO WITHOUT SUCCESS. SCANNED AMOUNT SHOWED 525 ML IN BLADDER WITH PT HAVING URGENCY. STRAIGHT CATHED PT PER ORDER WITH 910 ML OUT OF MED YELLOW URINE. WILL CONTINUE TO MONITOR.
[2019-05-29 07:20] VITALS: BP 130/63
--- NOTE | 2019-05-29 12:27 | NUR ---
team meeting, recommendation: re team with anticipated dc on .
--- NOTE | 2019-05-29 15:25 | NUR ---
DISCHARGE PLANNING. ANTICIPATED DISCHARGE PLANNED FOR 06/11. PLAN IS FOR PATIENT TO DISCHARGE TO HOME WITH [facility]. PATIENT REFERRAL FAXED TO [facility]. CALL PLACED TO SAL DEXTER DRINK WAITER TO NOTIFY. GUERITA TO REVIEW AND CONTACT CM. AWAITING RESPONSE. FOLLOWING TO ASSIST.
[2019-05-29 19:18] VITALS: BP 136/60
--- NOTE | 2019-05-29 20:16 | NUR ---
ASSUMED CARE OF PT AT 0715. PT IS A&OX4, FORGETFUL AND INCREASINGLY CONFUSED SHIFT CONTINUES. 2 WOUND VACS TO LLE DRAINING APPROPRIATELY, DRESSING C/D/I. BLADDER SCAN COMPLETED AT APPROXIMATELY 1000 THIS SHIFT AND RESIDUAL NOTED OF >500ML. WANG CATHETER PLACED PER ORDERS, DRAINED 700ML FOLLOWING INSERTION OF 16FR 10ML WANG CATHETER. IV IN R AC FLUSHES APPROPRIATELY, DRESSING C/D/I, SITE WNL. FALL PRECAUTIONS IN PLACE AND NURSING WILL CONTINUE TO MONITOR.
--- NOTE | 2019-05-29 23:14 | NUR ---
PT ASSESSMENT DONE AND VSS. MEDS GIVEN AND WELL TOLERATED. FALL PRECAUTIONS IN PLACE. HOURLY ROUNDING. CALL LIGHT IN REACH. WOUND VACS X 2 DRAINING. WANG PATENT AND DRAINING. SLEEPING WELL. WILL CONTINUE TO MONITOR.
[2019-05-30 07:10] VITALS: BP 107/52
--- NOTE | 2019-05-30 19:25 | NUR ---
ASSUMED CARE OF PT AT 0715. PT IS A&OX4, FORGETFUL, VITAL SIGNS STABLE. PAIN MANAGED WITH PO MEDICAITONS, PT PARTICIPATED IN SCHEDULED THERAPIES. SL IN RIGHT AC, PATENT AND SITE WNL. WOUND VACS WORKING APPROPRIATELY, DRESSINGS C/D/I. WANG CATHETER IN PLACE AND DRAINING APPROPRIATELY. AT THE BEDSIDE. MIRALAX SCHEDULED FOR CONSTIPATION REPORTED BY PT. CALORIE COUNT INITIATED, ENVELOPE ON DOOR. PT CALLS APPROPRIATELY, FALL PRECAUTIONS IN PLACE AND NURSING WILL CONTINUE TO MONITOR.
[2019-05-30 21:03] VITALS: BP 144/75
--- NOTE | 2019-05-31 02:05 | NUR ---
assumed care at approx 1900 evening 05/30. pt sitting up in bed at change of shift. pt alert and awake somewhat forgetful and hard of hearing. wound vac x2 one from left groin and 1 from left leg. wasserman to dd with concentrated yellow urine to bag. pt took hs meds with water tolerating well. pt somewhat anxious and restless tonight calling out frequently that she wants to be repositioned. pt given prn pain med and appears to be sleeping soundly at present. bed alarm on and call light in reach. will continue to monitor.
[2019-05-31 09:00] VITALS: BP 138/68
--- NOTE | 2019-05-31 13:08 | NUR ---
Nutrition: Calorie count shows pt consumed 1450 kcals and 57 gm protein this day. Met 91% kcal needs, 71% protein needs. Although pt eats small % of meals, generally drinks 100% supplements Ensure BID and magic cup daily. Is not a "big eater" in general. Understands high protein needs for wound healing. Due to fair/poor intake of main protein at meals, RD will add beneprotein powder on tray and instruct on use. Continue calorie count one more day.
--- NOTE | 2019-05-31 17:48 | NUR ---
ASSUMED CARE OF PT AT 0715. PT IS A&OX4, FORGETFUL AND IRRITABLE. VITAL SIGNS ARE STABLE. DUE TO INCREASED CONFUSION AND IRRITABILITY, UA OBTAINED TO CHECK FOR UTI. PT REPORTING FULL FEELING DESPITE CATHETER IN PLACE AND DRAINING APPROPRIATLEY, DENIES BURNING OR ITCHING. URINE YELLOW AND CLEAR W/O ODOR. PT UNABLE TO BEAR WEIGHT WITH TRANSFERS WITH NURSING STAFF THIS AFTERNOON. CALLING APPROPRIATELY FOR ASSISTANCE. IV IN RIGHT AC WNL. FALL PRECAUTIONS IN PLACE AND NURSING WILL CONTINUE TO MONITOR.
[2019-05-31 18:07] LABS: URINE BILIRUBIN NEGATIVE (Negative); URINE BLOOD 2+ (Negative); URINE CLARITY CLEAR; URINE COLOR YELLOW; URINE GLUCOSE-RANDOM* NEGATIVE (Negative); URINE KETONES TRACE (Negative); URINE LEUKOCYTES-REFLEX 1+ (Negative); URINE NITRITE-REFLEX NEGATIVE (Negative); URINE PROTEIN (DIPSTICK) 2+ (Negative); URINE SPECIFIC GRAVITY 1.015 (1.005-1.035); URINE UROBILINOGEN 0.2 E.U./dl (0.2-1.0)
[2019-05-31 18:15] LABS: SQUAMOUS 0-3 Few /LPF (0-3); URINE WBC-REFLEX 6-15 Few /HPF (0-5)
[2019-05-31 18:16] LABS: BACTERIA-REFLEX 1-9 Few /HPF (None Seen); CASTS None Seen /LPF (None Seen); CRYSTALS None Seen /LPF (None Seen)
[2019-05-31 19:20] VITALS: BP 129/70
--- NOTE | 2019-05-31 22:27 | NUR ---
PT ALERT AND ORIENTED X 2, CONFUSED AT TIMES. WANG PATENT DRAINING YELLOW URINE. WOUND VACS X 2 INTACT TO LEFT GROIN AND LEG. LLQ DRESSING C/D/I. PT C/O GENERALIZED PAIN. SCHEDULED HYDROCODONE GIVEN AT HS. PT ALSO GIVEN HYDROXYZINE AND MELATONIN AT HS FOR SLEEP. PT IRRITABLE AT TIMES. DOES YELL OUT FOR HELP. PT ENCOURAGED TO USE CALL LIGHT. BED ALARM ON FOR SAFETY. PT CHECKED ON HOURLY ROUNDS.
[2019-06-01 05:40] LABS: HEMATOCRIT 40.3 % (37.0-47.0); HEMOGLOBIN 12.3 gm/dL (12.0-15.0); MCH 23.5 pg (26.0-34.0); MCHC 30.6 g/dL (28.0-37.0); MCV 76.8 fL (80.0-100.0); PLATELET COUNT 321 thou/uL (150-400); RBC 5.25 mil/uL (4.20-5.00); RDW 21.2 % (10.5-14.5)
[2019-06-01 05:58] LABS: CALCIUM 9.3 mg/dL (8.5-10.1); CREATININE 0.6 mg/dL (0.6-1.0); POTASSIUM 4.5 mmol/L (3.5-5.1)
[2019-06-01 07:29] LABS: ABSOLUTE NEUTROPHILS 23.5 thou/uL (1.4-8.2); ATYPICAL LYMPHS 1 %; METAMYELOCYTES 1 %
[2019-06-01 07:30] LABS: ANISOCYTOSIS 2+; LARGE PLATELETS SEVERAL; PLATELET ESTIMATE NORMAL
[2019-06-01 07:31] LABS: HYPOCHROMASIA 1+; MACROCYTES SLIGHT; MICROCYTES 1+; OVALOCYTES 1+; POIKILOCYTOSIS 1+; POLYCHROMASIA SLIGHT
[2019-06-01 07:59] VITALS: BP 114/54
--- NOTE | 2019-06-01 12:51 | NUR ---
ASSUMED CARE OF PT AT 0715. NIGHT RN SAID PT WAS CONFUSED AND TRIED GET OUT THE BEST.SLEEPING AIDS GIVEN AND SHE FINALLY WENT TO SLEEP. SLEPT SOUNDLY AT THE BEGINNING OF THE SHIFT. PT IS A&OX3, [place],FORGETFUL AND IRRITABLE EASILY. OFFERED EMOTIONAL SUPPORT. VITAL SIGNS ARE STABLE. DUE TO INCREASED CONFUSION AND IRRITABILITY, UA +, AIDE AWARE AND WAITING FOR CULUTURE. REPORTING FULL NEEDS TO GO TO BATHROOM, WANG PATENT AND INTACT WITH URINE YELLOW AND CLEAR W/O ODOR. CALLING APPROPRIATELY FOR ASSISTANCE. IV ABT GIVEN, IV IS INFILTRATED NOW. REMOVED AND WILL INSERT ANOTHER LATER. STAND PIVOT WITH RW MODERATE ASSIST WITH RIGHT PROSTHESIS. PT IS OK WITH THIN LIQUID, HAS POOR APPETITE DOESN'T LIKE THE FOOD. PT REQUESTS TO BE ON REGULAR DIET INSTEAD OF HH. NOTIFIED AIDE AND DIET CHANGE TO REGULAR. WOUND VASC INTACT AND PATENT. DRESSING ON LLQ ABD C/D/I. REASSESSMENT PER CHART. HAD BM THIS AM. REFUSED MIRALAX, TOOK ALL MEDICATIONS ORDERED ONE AT THE TIME AND TOLERATED WELL. FALL PRECAUTIONS IN PLACE AND NURSING WILL CONTINUE TO MONITOR.
[2019-06-01 20:10] VITALS: BP 139/57
--- NOTE | 2019-06-02 00:38 | NUR ---
PATIENT ASSESSED AND IS ALERT X 2-3. VERY FORGETFUL AT TIMES AND IMPULSIVE. YELLS OUT "HELP ME HELP ME" ALL NIGHT. GIVEN ALL MEDS AND TAKEN THEM WELL. PATIENT HAS A UTI STARTED HER ON IV ANTIBIOTICS. IV SL IN RIGHT FA. FLUSHES WELL. HAS 2 WOUND VACS ON LEFT LEG PRESENT AND IN WORKING ORDER. TAKES LKIQUIDS THIN WELL. HAS A ABDOMINAL DRESSING DRY AND INTACT. REFUSED TO TURN AT 1999, WAS WATCHING TV. PAIN MEDICATION GIVEN AND COMPLAINING OF ANKLES, TOES, AND LEG PAIN ALONG WITH PHAMTOM PAIN ON RIGHT LEG. HOB ELEVATED DURING MEDICATION ADMINISTRATION. UP WITH 2 PERSON ASSIST TO BATHROOM. JAMILA WELL. VS STABLE. HAS NOT SLEPT EVEN WITH HS MEDICATION. YELLS OUT BUT HAS HER EYES CLOSED. IS CONFUSED MOST OF THE NIGHT. DID SLEEP INBETWEEN CARES AND YELLING AT TIMES. CONT PLAN OF CARE. MONITOR SLEEPING HABITS. HAS RIGHT BKA. DOES PIVOT WELL WITH PROSTHETIC LEG.
[2019-06-02 07:49] VITALS: BP 135/54
--- NOTE | 2019-06-02 07:52 | NUR ---
ASSUME PT CARE AT 0700. NIGHT RN REPORTS PT SLEPT BETTER LAST NIGHT. PT IS VERY LERTHAGIC NOW. MEDS ARE WORKING WELL, NOTIFIED DR. PIERCE TO CHANGE HYDROCODONE SCHEDULE AT HS TO PRN. HE SAID HE WILL CHANGE. VSS ON RA. WILL CONTINUE TO MONITOR.
[2019-06-02 19:15] VITALS: BP 127/48
--- NOTE | 2019-06-03 04:01 | NUR ---
ASSUMED CARE AT APPROX 1900 EVENING 06/02. PT LYING IN BED AT CHANGE OF SHIFT DOZING OFF AND ON. PT FORGETFUL, SOMEWHAT ANXIOUS, RESTLESS AT TIMES. PT GIVEN PAIN MED AND STILL CALLING OUT. PT DID TAKE HS MEDS WITH WATER TOLERATING WELL HOWEVER PT NOT FALLING ASLEEP SOUNDLY CALLING OUT FREQUENTLY IN THIS NIGHT. PT GIVEN ATARAX WITH NO CALM RESULTS. XANAX GIVEN ORDERED. PT HAS SLEPT OFF AND ON STILL CALLING OUT FREQUENTLY. WANG TO DD WITH YELLOW URINE TO BAG. BED ALARM ON AND CALL LIGHT IN REACH. WILL CONTINUE TO MONITOR.
[2019-06-03 05:53] LABS: HEMOGLOBIN 11.1 gm/dL (12.0-15.0); MCH 22.7 pg (26.0-34.0); MCHC 29.2 g/dL (28.0-37.0); MCV 77.9 fL (80.0-100.0); RBC 4.87 mil/uL (4.20-5.00); WBC 31.7 thou/uL (4.0-11.0)
[2019-06-03 06:23] LABS: CALCIUM 9.1 mg/dL (8.5-10.1); CREATININE 0.7 mg/dL (0.6-1.0); MAGNESIUM 2.1 mg/dL (1.8-2.4); POTASSIUM 3.9 mmol/L (3.5-5.1)
[2019-06-03 08:00] VITALS: BP 135/58
--- NOTE | 2019-06-03 16:31 | NUR ---
ASSUMED CARE OF PT AT 0715. PT IS A&OX3, WITH FREQUENT PERIODS OF FORGETFULNESS AND CONFUSION, AND VITAL SIGNS ARE STABLE. PT REPORTS PAIN IN SHOULDER AND BLE WHICH WAS MANAGED WITH PO MEDICAITONS. IV IN RIGHT AC INFILTRATED AND REPLACED IN LEFT HAND WITH 22G, FLUSHES APPROPRIATELY, SITE WNL, DRESSING C/D/I. PT PARTICIPATED IN SCHEDULED THERAPIES. AT BEDSIDE. WOUND VACS FUNCTIONING APPROPRIATELY. WANG CATHETER DRAINING APPROPRIATELY WITH ADEQUATE URINE OUTPUT. PT ENCOURAGED TO CHANGE POSITION FREQUENTLY. FALL PRECAUTIONS IN PLACE AND NURSING WILL CONTINUE TO MONITOR.
[2019-06-03 19:25] VITALS: BP 139/53
--- NOTE | 2019-06-03 22:43 | NUR ---
PT ASSESSMENT COMPLETED AND VSS. MEDS GIVEN ORDERED AND WELL TOLERATED. FALL PRECAUTIONS IN PLACE. WOUND VAC DSGS INTACT AND PUMP WNL. ASST WITH REPOSITION FOR COMFORT. WANG DRAINING YELLOW URINE. PT ANXIOUS AT NIGHT. PROVIDED MUCH REASSURANCE. SLEEPING ON AND OFF. WILL CONTINUE TO MONITOR FREQUENTLY.
[2019-06-04 08:06] VITALS: BP 142/60
--- NOTE | 2019-06-04 13:16 | NUR ---
Nutrition: Seen for follow up and completion of calorie count. RD calculated one final day from weekend menus. Culmination of 3 meals resulted in intake of 2047 kcals (>120% energy needs) and ~86 g protein (>100% goal protein). Pt no longer on ground diet, on regular w/ no mixed consistencies. Met with pt and spouse at lunch. Pt continues to average ~50% of meals, completing up to 60-75% of a few meals this weekend. Supplement average > 90% with Ensure Enlive BID (plus pt mixing Beneprotein into Ensure) and Magic Cup daily. Pt continues to report eating sufficiently and normal meal amounts for her. At baseline. Supplement intake alone meets 65% energy needs and > 80% protein. Plan to change vegetable order per request. Otherwise changing to low nutrition risk given consistent po trends and high supplement use TID.
--- NOTE | 2019-06-04 16:35 | NUR ---
ASSUMED CARE OF PT AT 0715. PT IS A&OX3 AND VITAL SIGNS ARE STABLE. PT REPORTED PAIN THIS MORNING IN HER SHOULDER AND BLE, MANAGED WITH PO MEDICAITONS, PARTICIPATED IN SCHEDULED THERAPIES. WANG IN PLACE, DRAINING APPROPRIATLEY WITH ADEQUATE URINE OUTPUT. WOUND VACS REMOVED THIS SHIFT AND DRESSING PLACED IN GROIN WITH ORDERS FOR DRESSING TO BE CHANGED DAILY. FALL PRECAUTIONS IN PLACE AND NURSING WILL CONTINUE TO MONITOR.
[2019-06-04 19:43] VITALS: BP 163/68
--- NOTE | 2019-06-04 22:43 | NUR ---
PT ASSESSMENT COMPLETED AND VSS. MEDS GIVEN ORDERED AND WELL TOLERATED. FALL PRECAUTIONS IN PLACE. ASST WITH REPOSITION FOR COMFORT. PRN PAIN MEDICATION HELPFUL FOR SHOULDER PAIN. WANG DRAINING YELLOW URINE. SLEEPING WELL. WILL CONTINUE TO MONITOR FREQUENTLY.
[2019-06-05 10:32] VITALS: BP 159/69
--- NOTE | 2019-06-05 13:45 | NUR ---
team meeting, recommendation: diet back to regular and thin liquids. dc 25th with [facility] ( pt, ot, st, nursing), to assist with bills and pills. outpt neurophyschology
--- NOTE | 2019-06-05 14:51 | NUR ---
ASSUMED CARE OF PT AT 0715. PT IS A&OX3. IS FORGETFUL. DENIES PAIN IN LLE & GROIN. NERIS INTACT. DRSG TO GROIN INTACT. PT IS STABLE. IS ON ROOM AIR. HAS RBKA WITH PROTHESIS. IS UP WITH MIN ASSIST OF 1 STAND PIVOT TO CHAIR. FALL PRECAUTIONS & HOURLY ROUNDING MAINTAINED THIS SHIFT. LABS & VITALS REVIWED. PT HAS WANG IN PLACE FOR URINARY RETENTION. PER NIGHT NURSE, VOIDING TRIAL ON TUESDAY. PT IS TO DC HOME ON Tuesday06/11/19 WITH [facility]. REQUESTED LABS VIA FAX FROM [facility], DR. BENJAMIN MOHAMUD, PHONE; [phone] WRIGHT. PT HAS ORDERS TO LEAVE UNIT WITH PATIENT, BUT TO OKAY WITH NURSE FIRST. PT IS STABLE. IS UP IN W/C, CALL LIGHT WITHIN REACH. ALARM IN PLACE. ACROSS FROM NURSE STATION. WILL CONTINUE TO MONITOR.
[2019-06-05 19:26] VITALS: BP 136/56
--- NOTE | 2019-06-06 02:52 | NUR ---
assumed care at approx 1900 evening 06/05. pt sitting up in w/c at change of shift alert and oriented, somewhat forgetful. wasserman to dd. pt took hs meds with applesauce tolerating well. assisted pt into gown and bed at hs. pt somewhat restless and calling out in the night. pt given xanax for anxiety and appears to be sleeping better more soundly at present. bed alarm on and call light in reach. will continue to monitor with hourly rounding.
[2019-06-06 05:24] LABS: CALCIUM 8.8 mg/dL (8.5-10.1); CREATININE 0.5 mg/dL (0.6-1.0); MAGNESIUM 2.1 mg/dL (1.8-2.4); POTASSIUM 4.1 mmol/L (3.5-5.1)
[2019-06-06 05:35] LABS: HEMATOCRIT 36.8 % (37.0-47.0); HEMOGLOBIN 11.2 gm/dL (12.0-15.0); MCH 23.6 pg (26.0-34.0); MCHC 30.3 g/dL (28.0-37.0); MCV 78.1 fL (80.0-100.0); PLATELET COUNT 331 thou/uL (150-400); RBC 4.72 mil/uL (4.20-5.00); RDW 23.4 % (10.5-14.5)
[2019-06-06 07:49] LABS: ATYPICAL LYMPHS 1 %; METAMYELOCYTES 5 %
[2019-06-06 07:50] LABS: MYELOCYTES 3 %
[2019-06-06 07:51] LABS: ABSOLUTE NEUTROPHILS 18.8 thou/uL (1.4-8.2); ANISOCYTOSIS 3+; HYPOCHROMASIA 1+; TEARDROPS OCCASIONAL
[2019-06-06 07:52] LABS: MICROCYTES 2+; OVALOCYTES FEW
[2019-06-06 10:11] VITALS: BP 123/54
--- NOTE | 2019-06-06 17:17 | NUR ---
ASSUMED CARE OF PT AT 0715. PT IS A&OX4, FORGETFUL, VITAL SIGNS ARE STABLE. PAIN TREATED WTIH PO MEDICAITONS WELL HEAT PAD AND ICE PACK, PT PARTICIPATED IN SCHEDULED THERAPIES. WANG CATHETER REMOVED AT 1745, NO OUTPUT AT THIS TIME. SURGICAL SITES TO LLE WELL APPROXIMATED WITH NERIS AND SUTURES, NO DRAINAGE NOTED, SOME REDNESS TO SITE ON CALF OF LEFT LEG. FALL PRECAUTIONS IN PLACE AND NURSING WILL CONTINUE TO MONITOR.
[2019-06-06 19:45] VITALS: BP 155/65
--- NOTE | 2019-06-07 02:30 | NUR ---
SINCE WANG REMOVED PATIENT HAS VOIDED 50 CC AT 2245 AND 75 CC AT 0230. STRAIGHT CATHED FOR 450 CC AT THIS TIME. FREQUENT REQUESTS FOR WATER AND REPOSITIONING. PAIN MED, XANAX, BRIEF USE OF AK PAD TO RIGHT SHOULDER.
[2019-06-07 07:22] VITALS: BP 136/63
--- NOTE | 2019-06-07 18:07 | NUR ---
ASSUMED CARE OF PT AT 0715. PT IS A&OX4, FORGETFUL, VITAL SIGNS ARE STABLE. PAIN MANAGED WITH PO MEDICATIONS, KPAD, ICE, AND VOLTAREN GEL, PARTICIPATED IN SCHEDULED THERAPIES. DUE TO FAILED VOID TRIAL, WANG CATHETER REPLACED, DRAINING APPROPRIATELY WITH ADEQUATE URINE OUTPUT, SECURED TO RLE. LLE SURGICAL SITES WELL APPROXIMATED WITH NERIS AND SUTURES IN PLACE, LIGHT REDNESS TO AREA OF CALF, NO DRAINAGE. FALL PRECAUTIONS IN PLACE AND NURSING WILL CONTINUE TO MONITOR.
[2019-06-07 19:34] VITALS: BP 137/66
--- NOTE | 2019-06-07 23:30 | NUR ---
MEDS GIVEN WHILE PATIENT SITTING AT BEDSIDE THIS EVENING INCLUDE PAIN MED AND XANAX FOR ANXIETY. WANG TO CANDIDA, STATLOCK REAPPLIED.
--- NOTE | 2019-06-08 03:27 | NUR ---
FREQUENTLY ASKING FOR HELP AND TO PLEASE SAVE HER, NO SPECIFIC COMPLAINTS OTHER THAN RIGHT ANTERIOR SHOULDER PAIN WHICH IS EASED CONSIDERABLY WITH AK HEATING PAD AND TOPICAL VOLTAREN. WANG TO DD WITH ANNE URINE OUTPUT. REPOSITIONED BY REQUEST USUALLY WITH HEAD OF BED UP 30 DEGREES
[2019-06-08 07:42] VITALS: BP 104/58
--- NOTE | 2019-06-08 11:37 | NUR ---
ASSUMED CARE AT 0700. PATIENT IS ALERT AND ORIENTED TO SELF. PATIENT MOVES HER LEFT LEG. PATIENT HAS INCISION OPEN TO AIR ON THE LEFT LEG. PATIENT HAS RIGHT BKA. PATIENT HAS PROTHESIS FOR TRANSFERS. UP IN W/C FOR MEALS. LUNGS ARE CLEAR. ABD IS SOFT WITH BSX4. PATIENT HAS WANG TO DD, DRAINING ANNE COLORED URINE. FALL AND SAFETY PROTOCOLS IN PLACE. C/O PAIN IN HER RIGHT SHOULDER. MEDICATED WITH PRN PAIN MED AND APPLIED VOLTARIN GEL. CONTINUES TO PROGRESS SLOWLY TOWARDS D/C GOALS. WILL CONTINUE TO MONITER.
[2019-06-08 19:40] VITALS: BP 118/59
--- NOTE | 2019-06-09 01:50 | NUR ---
ASSUMED CARE AT APPROX 1900 EVENING 06/08. PT SITTING UP IN W/C AT CHANGE OF SHIFT WITH VISITING AT BEDSIDE. PT ALERT AND ORIENTED TALKING TO . PTS STAYED TILL APPROX 2029. ASSISTED PT INTO GOWN AND MAX ASSIST X2 INTO BED. PT FORGETFUL AND SOMEWHAT RESTLESS. PT TOOK HS MEDS WITH APPLESAUCE TOLERATING WELL. WANG TO DD WITH CLEAR YELLOW URINE TO BAG. PT CALLING OUT FREQUENTLY, ANXIOUS, RESTLESS. XANAX GIVEN ORDERED. PT TALKS IN HER SLEEP AND WHEN STAFF GO INTO ROOM SHE HAS EYES CLOSED AND FALLS BACK TO SLEEP. BED ALARM ON AND CALL LIGHT IN REACH. WILL CONTINUE TO MONITOR.
--- NOTE | 2019-06-09 10:04 | NUR ---
ASSUMED CARE AT 0700. PATIENT IS ALERT AND ORIENTED X1. PATIENT IS UP WITH HER PROTHESIS ON AND OUT TO THE DINING ROOM FOR BREAKFAST. LUNGS ARE CLEAR AND DEMINISHED. ABD IS SOFT WITH BSX4. LEFT LEG INCISIONS OPEN TO AIR. L.E. NERIS ARE INTACT,BUT A LITTLE PINK. FALL AND SAFETY PROTOCOLS IN PLACE. DENIES PAIN AT THIS TIME. CONTINUES TO PROGRESS SLOWLY TOWARDS D/C GOALS. WILL CONTINUE TO MONITER.
[2019-06-09 19:17] VITALS: BP 138/72
--- NOTE | 2019-06-10 01:23 | NUR ---
assumed care at approx 1900 evening 06/09. pt lying in bed with head of bed elevated at change of shift. assisted pt with changing into gown at hs. pt took hs meds with applesauce tolerating well. pt calling out frequently forgetful with requests. wasserman to dd with yellow urine to bag. bed alarm on and call light in reach. will continue to monitor and hourly rounding.
[2019-06-10 08:00] VITALS: BP 112/57
--- NOTE | 2019-06-10 15:21 | NUR ---
ASSUMED CARE OF PT AT 0715. PT IS A&OX4, FORGETFUL, AND VITAL SIGNS ARE STABLE. PAIN IN RIGHT SHOULDER MANAGED WITH DICLOFENAC GEL AND K-PAD, PARTICIPATED IN SCHEDULED THERAPIES. WANG CATHETER IN PLACE AND DRAINING APPROPRIATELY ADEQUATE AMOUNTS OF CLEAR YELLOW URINE. FALL PRECAUTIONS IN PLACE AND NURSING WILL CONTINUE TO MONITOR.
[2019-06-10 20:11] VITALS: BP 141/74
--- NOTE | 2019-06-11 01:53 | NUR ---
PT ASSESSMENT COMPLETED AND VSS. MEDS GIVEN ORDERED AND WELL TOLERATED. FALL PRECAUTIONS IN PLACE. SLEEPING ON AND OFF. PT CALLING OUT. PROVIDED MUCH EMOTIONAL SUPPORT. ASST WITH REPOSITION FOR COMFORT. WANG DRAINING YELLOW URINE. WILL CONTINUE TO MONITOR FREQUENTLY.
[2019-06-11 05:50] LABS: HEMATOCRIT 39.1 % (37.0-47.0); HEMOGLOBIN 12.2 gm/dL (12.0-15.0); MCH 24.4 pg (26.0-34.0); MCHC 31.1 g/dL (28.0-37.0); MCV 78.4 fL (80.0-100.0); PLATELET COUNT 282 thou/uL (150-400); RBC 4.99 mil/uL (4.20-5.00); RDW 26.2 % (10.5-14.5); WBC 23.7 thou/uL (4.0-11.0)
[2019-06-11 07:59] VITALS: BP 118/66
[2019-06-11 08:23] LABS: ABSOLUTE NEUTROPHILS 18.7 thou/uL (1.4-8.2); METAMYELOCYTES 2 %
[2019-06-11 08:24] LABS: ANISOCYTOSIS 3+; POLYCHROMASIA OCCASIONAL
[2019-06-11 08:27] LABS: MICROCYTES 2+
[2019-06-11 08:28] LABS: OVALOCYTES 1+; TEARDROPS FEW
[2019-06-11] MEDS ORDERED: MIRALAX17 GM PO (09:07)
[2019-06-11] MEDS ORDERED: VITAMIN D5000 UNIT PO (09:07)
[2019-06-11] MEDS ORDERED: TYLENOL EXTRA500 MG PO (09:07)
[2019-06-11] MEDS ORDERED: SENNA PLUS TAB1 EACH PO (09:07)
[2019-06-11 10:17] VITALS: BP 118/66
--- NOTE | 2019-06-11 10:26 | NUR ---
DISCHARGE ORDERS COMPLETED PER ATTENDING. FAXED TO [facility]. CALL PLACED TO [facility] TO NOTIFY. [facility] TO FACILITATE.
--- NOTE | 2019-06-11 14:00 | NUR ---
PT ALERT AND ORIENTED TIMES THREE WITH PERIODS OF CONFUSION. VSS. PT C/O PAIN PRN PAIN MEDICATIONS GIVEN WITH GOOD RELEIF. PT WORKED WELL WITH PT/OT. PT TOLERATES MEDS AND MEALS. PT PROGRESSING TOWRADS POC GOALS.
[2019-06-12] MEDS ORDERED: VITAMIN D35000 UNI1 PO (19:43)
--- NOTE | 2019-06-17 12:45 | HC ---
[facility] [place] [address] CONSULTATION Name: JAMES NIÑO Room #: 504-1 [facility] IN M.R.#: [id number] Admission: 05/24/19 Attend Phys: Ovidio Garrison MD Discharge: 06/11/19 Date of : 40 Report #: [id number] THIS REPORT FOR: //name// CC: Ovidio Norris DATE OF SERVICE: 05/28/2019 CLINICAL PRESENTATION: The patient is a 79-year-old female admitted to the [facility] Rehabilitation Unit for a comprehensive inpatient rehabilitation program to improve functional mobility, activities of daily living and self-care and mental status secondary to impairment from a toxic metabolic encephalopathy. The initial impression on admission also included severe peripheral artery disease, status post left femoral popliteal bypass, prior right ycamr-cig-ylfu amputation, history of permanent pacemaker, bilateral shoulder rotator cuff tears, hypertension, hyperlipidemia and dysphagia. She was initially admitted to the [facility] with pain in her left foot. She underwent a left fem-pop bypass procedure on 05/18/2019, but had a complicated hospital course noted by confusion and disorientation. The patient required restraints and then was treated with Ativan. A complete description of her medical condition and history along with medications can be found in her medical record. Neuropsychological consultation was requested to provide assistance in the assessment of cognitive and emotional status and to provide recommendations and services. Prior to this most recent admission, she was living with her in their home. She has 2 children. The patient is a college graduate. 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 TECHNIQUES UTILIZED: Clinical interview, review of medical records, staff consultation and behavioral observation, family interview -- , mini mental status exam 2 standard version, clock drawing and verbal fluency assessment (letter and category). EXAMINATION FINDINGS: The patient was alert and cooperative with the assessment. There is no evidence of aphasia. She does not report auditory or visual hallucinations. The patient is unable to describe the reason for her hospitalization. She does note infection in her leg and cqwst-dog-mhmw amputation. Her primary complaint is not being able to walk and pain in her leg. Symptoms are reported to include memory, word finding, sleep and appetite. The patient does not report anxiety or depression. Her energy level is reduced and she describes fatigue. Her indicates that sleep and appetite were poor [facility] [address] [place] [address] CONSULTATION Name: JAMES NIÑO Room #: 504-1 [facility] IN ..#: [id number] Admission: 05/24/19 Attend Phys: Ovidio Garrison MD Discharge: 06/11/19 Date of : 40 Report #: [id number] prior to her admission. The patient had discontinued driving about 3 years ago. Her daughter is reported to be helping manage medication. Her is noting continued confusion and disorientation; although, he reports that her cognition appears somewhat improved compared to earlier in her hospitalization. Her performance on the MMSE 2 brief version is extremely low with a raw score of 12/16, which is a T score of 27 and percentile rank of 1. She was 3/3 for initial registration, 4/5 for orientation to time, 4/[address] and 1/3 for immediate recall of 3 items after a brief time delay and distraction. Her performance improved on the MMSE 2 standard version to a raw score 24/30, which is a T score of 35 and percentile rank of 7. She was 4/5 for serial 7s, 2/2 for naming, 1/1 for repetition, 3/3 for auditory comprehension. She could read and follow single command and write a sentence. The patient had difficulty with copying a simple geometric design. Clock drawing was within normal limits. Letter fluency was in the low average range with a raw score of 25, T score of 43 and percentile rank of 24. Category fluency was extremely low with a raw score of 24, T score 24 and percentile rank of less than 1. Overall, total fluency was in the borderline range with a raw score of 49, standard scale score of 5 and T score of 29, which is at the 2nd percentile. The patient is presenting with deficits in immediate recall, visual spatial construction and verbal fluency. Impairment in verbal fluency is primarily category, which suggests dysfunction indicating a neurocognitive disorder. DIAGNOSTIC IMPRESSION: Neurocognitive disorder -- extent to be determined, likely in the moderate to moderate range, without behavioral disorder. Unspecified depressive disorder. RECOMMENDATIONS: The patient would likely benefit from a treatment program for depression that includes the use of a medication to support sleep and appetite, example Remeron. Neuropyschological testing following her hospitalization would be helpful in the clarification of her neurocognitive functioning. Continued speech therapy will be helpful to improve cognitive functioning and assist with the establishment of compensatory strategies. This type of presentation, likely suggests a major neurocognitive disorder (dementia). As indicated, clarification of cognitive function will be of benefit for both the management of medication as well as assisting the family [facility] [address] [place] [address] CONSULTATION Name: JAMES NIÑO Room #: 504-1 [facility] IN M.R.#: [id number] Admission: 05/24/19 Attend Phys: Ovidio Garrison MD Discharge: 06/11/19 Date of : 40 Report #: [id number] in compensatory techniques and strategy. At this time, the patient will require assistance in the management of medication. Thank you very much for allowing me to provide the consultation on this patient. <ELECTRONICALLY SIGNED> By: Chance Archuleta, PhD 06/17/19 1245 1031 2217 Chance Archuleta, PhD /nt
--- NOTE | 2019-06-24 23:59 | HC ---
[facility] [place] [address] CONSULTATION Name: JAMES NIÑO Room #: 504-1 [facility] IN M.R.#: [id number] Admission: 05/24/19 Attend Phys: Ovidio Garrison MD Discharge: 06/11/19 Date of : 40 Report #: [id number] THIS REPORT FOR: //name// CC: Ovidio Norris DATE OF SERVICE: 06/03/2019 CONSULTATION: Infectious diseases. HISTORY OF PRESENT ILLNESS:Ms Niño, a 79-year-old white female who was admitted to [facility] on 05/18/2019 with rest pain due to peripheral artery disease in her left leg. She underwent a revision of the femoropopliteal bypass. Her postoperative course was complicated with leukocytosis and encephalopathy. The patient becoming quite debilitated and after being in the hospital for one week was transferred to acute rehabilitation. The patient initially received vancomycin for 48 hours around the time of the surgery. The day after coming to rehab, it was noted that she had the elevated white count and she was started on cefepime. On 06/01, the patient seemed more confused and again had a high white count. Antibiotics were changed to Zosyn. On the , Infectious Disease consultation was requested because of deteriorating condition. PAST MEDICAL HISTORY: Significant for hypertension, hyperlipidemia, atrial fibrillation, peripheral artery disease, hypothyroidism, and polycythemia vera, now with probable involvement of the white blood cell lines as well. 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 She has a permanent pacemaker. The patient has undergone a thyroidectomy. She has a left knee replacement and has had left hip surgery. She has bilateral rotator cuff surgeries. She had the left femoropopliteal bypass, now with revision. ALLERGIES: THE PATIENT NOTES ALLERGY TO SULFA DRUGS. FAMILY HISTORY: Noncontributory. SOCIAL HISTORY: The patient is . Her is supportive. She does not use alcohol, tobacco nor drugs. REVIEW OF SYSTEMS: At this time, the patient notes that her mental status is not normal, but feels comfortable and is able to give a pretty clear history. ENT: The patient denies headache, sinus congestion, sore throat, trouble swallowing. CHEST: The patient denies cough, chest pain, shortness of breath. The patient denies angina, syncope or palpitations. [address] [address] CONSULTATION Name: JAMES NIÑO Room #: 504-1 [facility] IN M.R.#: [id number] Admission: 05/24/19 Attend Phys: Ovidio Garrison MD Discharge: 06/11/19 Date of : 40 Report #: [id number] ABDOMEN: The patient denies nausea, vomiting or diarrhea. She complains of constipation and abdominal bloating. GENITOURINARY: The patient has had urinary retentions and has required intermittent catheterization. No dysuria. EXTREMITIES: Weak, post-surgical changes, otherwise unremarkable. PHYSICAL EXAMINATION: GENERAL: The patient appears her stated age, alert, oriented, and cogent comfortable, not in any distress. VITAL SIGNS: Show maximum temperature since coming to rehabilitation is 99.0. She was afebrile at the time of my examination. SKIN: Shows no rash, lesion or exanthem. There are surgical wounds on the left leg, which are under a negative pressure wound dressing. There is some chronic erythema of the lower leg, which looks to me more like chronic stasis. There is no edema. The nails are in good repair. The right below-knee amputation stump is well healed. ENT: Negative. NEUROLOGIC: Cognition is good. The patient is able to know the year, that she is in the hospital and discuss national politics. CARDIOVASCULAR: Heart sounds are normal. LUNGS: Clear. ABDOMEN: Belly is obese, soft, nontender. There is some fullness in the left upper quadrant, which may represent splenomegaly, although with obesity and some bloating I cannot appreciate a distinct edge. EXTREMITIES: As noted. LABORATORY DATA: The white count after surgery was 39,000. It has come as low as 26,000 and now is back up to 31.7, hemoglobin was 14.7 preop, is now 11.1. Platelets are 382,000. Electrolytes, BUN and creatinine are normal. Urinalysis is negative. Urine culture is negative. ASSESSMENT AND PLAN: In summary, the patient who had a severe peripheral artery disease, who became somewhat encephalopathic after surgery and now is very debilitated. 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 In this setting, I am not too sure that the white count going from 25 to 35 is anymore the random variation of sick bone marrow. I am not convinced this represents any infection. The usual source of infection I am worried about include urinary tract with the intermittent catheterizations, wound infection after surgery, or Aspiration pneumonia with the delirium. However, examination studies have not confirmed any local infection. Today, the patient is afebrile with a really normal mental status. The constipation makes C. difficile diarrhea unlikely. I suggest we discontinue all the antibiotics. Should the patient become febrile, we can do blood cultures. A followup chest x-ray would be helpful. If [facility] [address] [place] [address] CONSULTATION Name: JAMES NIÑO Room #: 504-1 [facility] IN .R.#: [id number] Admission: 05/24/19 Attend Phys: Ovidio Garriosn MD Discharge: 06/11/19 Date of : 40 Report #: [id number] she does develop diarrhea, C. difficile would be important. I did not remove the VAC dressing today, but tomorrow when it is changed, we should carefully examine the wound for any evidence of wound infection. For now, we will discontinue all antibiotics and observe the patient. I appreciate the opportunity of input in the care of this pleasant patient. Dr. Mcgarry will assume care on Tuesday. <ELECTRONICALLY SIGNED> By: Vinny Gabriel MD 06/24/19 2359 1320 1655 Vinny Gabriel MD /nt
== END 2019-06-11 13:45 | disposition home health service (06) | DRG 92 ==
LOC: ENTRNSPT 06-11 13:02 → EDTRNSPTSTS 06-11 13:40
PROVIDERS: Hospitalist; Internal Medicine; Internal Medicine Hematology & Oncology; Nurse Practitioner; Nurse Practitioner Family; Specialist; ADMIT Physical Medicine & Rehabilitation
DX: G92 Toxic encephalopathy (principal); L03.116 Cellulitis of left lower limb; N39.0 Urinary tract infection, site not specified; I10 Essential (primary) hypertension; E78.5 Hyperlipidemia, unspecified; R13.10 Dysphagia, unspecified; I73.9 Peripheral vascular disease, unspecified; F32.9 Major depressive disorder, single episode, unspecified; R41.9 Unspecified symptoms and signs involving cognitive functions and awareness; I48.91 Unspecified atrial fibrillation; E03.9 Hypothyroidism, unspecified; Z96.652 Presence of left artificial knee joint; R53.81 Other malaise; D72.829 Elevated white blood cell count, unspecified; Z96.643 Presence of artificial hip joint, bilateral; D64.9 Anemia, unspecified; K59.00 Constipation, unspecified; D45 Polycythemia vera; R26.9 Unspecified abnormalities of gait and mobility; R33.9 Retention of urine, unspecified; F41.9 Anxiety disorder, unspecified; G47.00 Insomnia, unspecified; R41.0 Disorientation, unspecified; Z89.511 Acquired absence of right leg below knee; Z95.0 Presence of cardiac pacemaker; Z79.01 Long term (current) use of anticoagulants; Z88.2 Allergy status to sulfonamides; Z80.9 Family history of malignant neoplasm, unspecified; Z95.820 Peripheral vascular angioplasty status with implants and grafts; Z85.828 Personal history of other malignant neoplasm of skin; Z87.891 Personal history of nicotine dependence
CPT/HCPCS: 10112

== ENCOUNTER 2019-06-12 17:32 | Inpatient (IN) | payer OTHER ==
[~2019-06-12] VITALS: Ht 167.6 cm; Wt 81.3 kg
[~2019-06-12 17:32] MED LIST changes: +MIRALAX17 GM PO; +SENNA PLUS TAB1 EACH PO; +VITAMIN D5000 UNIT PO
[2019-06-12 17:33] VITALS: BP 149/89
[2019-06-12 17:51] LABS: HEMATOCRIT 42.9 % (37.0-47.0); MCH 24.1 pg (26.0-34.0); MCHC 30.2 g/dL (28.0-37.0); MCV 79.7 fL (80.0-100.0); PLATELET COUNT 304 thou/uL (150-400); RBC 5.39 mil/uL (4.20-5.00); RDW 26.2 % (10.5-14.5); WBC 25.7 thou/uL (4.0-11.0)
[2019-06-12 17:51] LABS: URINE BILIRUBIN NEGATIVE (Negative); URINE BLOOD 1+ (Negative); URINE CLARITY CLEAR; URINE COLOR YELLOW; URINE GLUCOSE-RANDOM* NEGATIVE (Negative); URINE KETONES NEGATIVE (Negative); URINE LEUKOCYTES-REFLEX 1+ (Negative); URINE NITRITE-REFLEX NEGATIVE (Negative); URINE PROTEIN (DIPSTICK) 3+ (Negative); URINE SPECIFIC GRAVITY 1.025 (1.005-1.035); URINE UROBILINOGEN 0.2 E.U./dl (0.2-1.0)
[2019-06-12 18:01] LABS: SQUAMOUS 0-3 Few /LPF (0-3)
[2019-06-12 18:02] LABS: CALCIUM 9.2 mg/dL (8.5-10.1); CREATININE 0.6 mg/dL (0.6-1.0); POTASSIUM 4.1 mmol/L (3.5-5.1)
[2019-06-12 18:02] LABS: CASTS None Seen /LPF (None Seen); CRYSTALS None Seen /LPF (None Seen); URINE RBC 3-10 Few /HPF (0-2); YEAST-REFLEX Present (None Seen)
[2019-06-12 18:08] LABS: ALBUMIN 4.1 g/dL (3.4-5.0); TOTAL BILIRUBIN 0.6 mg/dL (<0.1-1.0); TOTAL PROTEIN 6.8 g/dL (6.4-8.2)
[2019-06-12 18:34] LABS: ABSOLUTE NEUTROPHILS 21.1 thou/uL (1.4-8.2); ANISOCYTOSIS 3+; ATYPICAL LYMPHS 3 %; POLYCHROMASIA 1+
[2019-06-12 18:35] LABS: LARGE PLATELETS FEW
[2019-06-12 19:37] VITALS: BP 138/80
--- NOTE | 2019-06-12 19:42 | NUR ---
ED NURSE CALLED TO GIVE REPORT TO INPATIENT NURSE, WAS TOLD TO WAIT FOR A RETURN CALL FROM PAIGE
[2019-06-12] MEDS ORDERED: VITAMIN D35000 UNI1 PO (19:43)
[2019-06-12 20:12] VITALS: BP 130/82
[2019-06-12 21:00] VITALS: BP 133/95
[2019-06-13 04:00] VITALS: BP 135/55
--- NOTE | 2019-06-13 07:37 | EKG ---
[address] [place] [address] ELECTROCARDIOGRAM REPORT Name: SABRINABUCKVIJAYJAMES Room #: 202-P ADM IN M.R.#: [id number] Admission: 06/12/19 Attend Phys: Ryan Ren MD Discharge: Date of : 40 Report #: [id number] THIS REPORT FOR: //name// [facility] ED Test Date: 2019-06-12 Test Time: 18:39:19 Pat Name: JAMES NIÑO Department: Room: 202 Gender: F [employer] Painter: FREYA : 1940 Requested By: Sussy Mcclellan Order Number: [id number] MD: Yash Franklin Measurements Intervals [place] Rate: 126 P: 74 ME: 136 QRS: -22 QRSD: 132 T: 25 QT: 369 QTc: 535 Interpretive Statements Atrial flutter with 2:1 AV conduction Leftward axis Poor R wave progression Compared to ECG 05/07/2019 09:57:11 Atrial flutter has replaced sinus rhythm Electronically Signed On 06-13-2019 7:37:32 KNEE BOLTER by Yash Franklin [email or web address] <ELECTRONICALLY SIGNED> By: Yash Franklin MD, [facility] 06/13/19 0737 1839 1839 Yash Franklin MD, [facility] /EPI
[2019-06-13 08:00] VITALS: BP 128/79
--- NOTE | 2019-06-13 10:51 | NUR ---
Patient with prev hospital stay rec fempop bypass. She dc to acute [facility]N rehab and rec 18 day acute rehab stay. She dc home with [facility] Jun 11 and readmitted within 24 hours of dc. Patient/spouse requesting placement at [facility] or [facility]. [facility] unable to accept due to patient with recent dc from Acute Rehab with no new diagnosis to support acute rehab. Discussed skilled care with patient and spouse. SP with [facility] no beds avail unitl next week. gave spouse list of facilities to review. [facility] to give time to review and will check back to patient/family options.
--- NOTE | 2019-06-13 12:20 | NUR ---
spoke with patient/spouse regarding skilled facilites. Referral to [facility] and [facility].
[2019-06-13 12:28] VITALS: BP 130/83
[2019-06-13] MEDS ORDERED: CEFUROXIME250 MG PO (14:14)
--- NOTE | 2019-06-13 14:38 | NUR ---
patient/spouse first choice it [facility]. [facility] did not return call. [facility] accepting however only [facility] room. Both patient and spouse agreeable with [facility] but patient can become more confused at night. Updated the [facility] she might call out at night. Faxed orders, chart copied. Updated patient and spouse piyush valencia for 1630. Updated RN no further needs
== END 2019-06-13 17:38 | DRG 698 ==
LOC: ER 17:32 → 2N 19:37 → EROBS 19:37 → ICU 20:07 → 2N 20:09
PROVIDERS: Physician Assistant; ADMIT Hospitalist
DX: T83.518A Infection and inflammatory reaction due to other urinary catheter, initial encounter (principal); A41.9 Sepsis, unspecified organism; N39.0 Urinary tract infection, site not specified; L03.116 Cellulitis of left lower limb; I48.92 Unspecified atrial flutter; D45 Polycythemia vera; I48.91 Unspecified atrial fibrillation; I10 Essential (primary) hypertension; E78.5 Hyperlipidemia, unspecified; I73.9 Peripheral vascular disease, unspecified; E89.0 Postprocedural hypothyroidism; Z96.652 Presence of left artificial knee joint; R33.9 Retention of urine, unspecified; Y84.6 Urinary catheterization as the cause of abnormal reaction of the patient, or of later complication, without mention of misadventure at the time of the procedure; Z89.511 Acquired absence of right leg below knee; Z79.01 Long term (current) use of anticoagulants; Z95.820 Peripheral vascular angioplasty status with implants and grafts; Z95.0 Presence of cardiac pacemaker; Z85.828 Personal history of other malignant neoplasm of skin; Z79.899 Other long term (current) drug therapy; Z88.2 Allergy status to sulfonamides; Z87.891 Personal history of nicotine dependence; Z79.02 Long term (current) use of antithrombotics/antiplatelets; Y92.89 Other specified places as the place of occurrence of the external cause
CPT/HCPCS: 10081

== ENCOUNTER → 2019-07-25 | Outpatient (CLI) | payer OTHER ==
[~2019-07-25] MED LIST changes: +CEFUROXIME250 MG PO; +VITAMIN D35000 UNI1 PO
== END ==
LOC: HYPER 07:54
DX: L97.822 Non-pressure chronic ulcer of other part of left lower leg with fat layer exposed (principal); S81.802A Unspecified open wound, left lower leg, initial encounter; I73.9 Peripheral vascular disease, unspecified; I89.0 Lymphedema, not elsewhere classified; Z96.643 Presence of artificial hip joint, bilateral; Z96.653 Presence of artificial knee joint, bilateral; Z87.891 Personal history of nicotine dependence; W19.XXXA Unspecified fall, initial encounter; Y93.02 Activity, running; Y92.89 Other specified places as the place of occurrence of the external cause; Y99.8 Other external cause status

== ENCOUNTER → 2019-08-08 | Outpatient (CLI) | payer OTHER | LOC: HYPER 08:47 | DX: I70.242 Atherosclerosis of native arteries of left leg with ulceration of calf (principal); L97.222 Non-pressure chronic ulcer of left calf with fat layer exposed; S91.332A Puncture wound without foreign body, left foot, initial encounter; I89.0 Lymphedema, not elsewhere classified; D45 Polycythemia vera; E03.9 Hypothyroidism, unspecified; E78.2 Mixed hyperlipidemia; G54.6 Phantom limb syndrome with pain; I10 Essential (primary) hypertension; I48.0 Paroxysmal atrial fibrillation; K59.00 Constipation, unspecified; M19.011 Primary osteoarthritis, right shoulder; M19.012 Primary osteoarthritis, left shoulder; R33.9 Retention of urine, unspecified; F41.1 Generalized anxiety disorder; Z87.891 Personal history of nicotine dependence; Z95.0 Presence of cardiac pacemaker; Z89.511 Acquired absence of right leg below knee; W19.XXXA Unspecified fall, initial encounter; Y93.89 Activity, other specified; Y92.89 Other specified places as the place of occurrence of the external cause; Y99.8 Other external cause status ==

== ENCOUNTER → 2019-08-15 | Outpatient (CLI) | payer OTHER | LOC: HYPER 08:32 | DX: I70.248 Atherosclerosis of native arteries of left leg with ulceration of other part of lower leg (principal); L97.822 Non-pressure chronic ulcer of other part of left lower leg with fat layer exposed; S81.802D Unspecified open wound, left lower leg, subsequent encounter; S91.302D Unspecified open wound, left foot, subsequent encounter; I89.0 Lymphedema, not elsewhere classified; D45 Polycythemia vera; E03.9 Hypothyroidism, unspecified; E78.2 Mixed hyperlipidemia; G54.6 Phantom limb syndrome with pain; I10 Essential (primary) hypertension; I48.0 Paroxysmal atrial fibrillation; K59.00 Constipation, unspecified; M19.011 Primary osteoarthritis, right shoulder; M19.012 Primary osteoarthritis, left shoulder; R33.9 Retention of urine, unspecified; F41.1 Generalized anxiety disorder; Z87.891 Personal history of nicotine dependence; Z89.511 Acquired absence of right leg below knee; Z95.0 Presence of cardiac pacemaker; W18.30XD Fall on same level, unspecified, subsequent encounter ==

== ENCOUNTER → 2019-08-28 | Outpatient (CLI) | payer OTHER | LOC: SJCVCIMAG 10:43 | DX: I08.1 Rheumatic disorders of both mitral and tricuspid valves (principal); I70.203 Unspecified atherosclerosis of native arteries of extremities, bilateral legs; I48.0 Paroxysmal atrial fibrillation; I10 Essential (primary) hypertension; E78.00 Pure hypercholesterolemia, unspecified; Z95.1 Presence of aortocoronary bypass graft; Z96.653 Presence of artificial knee joint, bilateral; Z96.643 Presence of artificial hip joint, bilateral; Z79.899 Other long term (current) drug therapy; Z95.0 Presence of cardiac pacemaker; Z87.891 Personal history of nicotine dependence ==

== ENCOUNTER → 2020-11-19 | Outpatient (CLI) | payer OTHER | LOC: HYPER 13:09 | PROVIDERS: ATTEND Emergency Medicine | DX: I70.248 Atherosclerosis of native arteries of left leg with ulceration of other part of lower leg (principal); L97.822 Non-pressure chronic ulcer of other part of left lower leg with fat layer exposed; I70.245 Atherosclerosis of native arteries of left leg with ulceration of other part of foot; L97.522 Non-pressure chronic ulcer of other part of left foot with fat layer exposed; I87.2 Venous insufficiency (chronic) (peripheral); I89.0 Lymphedema, not elsewhere classified; D45 Polycythemia vera; E03.9 Hypothyroidism, unspecified; I11.0 Hypertensive heart disease with heart failure; I50.9 Heart failure, unspecified; I48.0 Paroxysmal atrial fibrillation; R63.2 Polyphagia; M19.011 Primary osteoarthritis, right shoulder; M19.012 Primary osteoarthritis, left shoulder; M62.81 Muscle weakness (generalized); R60.0 Localized edema; G89.29 Other chronic pain; F41.1 Generalized anxiety disorder; Z87.891 Personal history of nicotine dependence; Z89.511 Acquired absence of right leg below knee; Z95.0 Presence of cardiac pacemaker ==

== ENCOUNTER → 2020-12-10 | Outpatient (CLI) | payer OTHER | LOC: HYPER 09:04 | PROVIDERS: ATTEND Emergency Medicine | DX: I70.248 Atherosclerosis of native arteries of left leg with ulceration of other part of lower leg (principal); L97.822 Non-pressure chronic ulcer of other part of left lower leg with fat layer exposed; I70.245 Atherosclerosis of native arteries of left leg with ulceration of other part of foot; L97.522 Non-pressure chronic ulcer of other part of left foot with fat layer exposed; I87.2 Venous insufficiency (chronic) (peripheral); I89.0 Lymphedema, not elsewhere classified; R60.0 Localized edema; E03.9 Hypothyroidism, unspecified; D45 Polycythemia vera; I11.0 Hypertensive heart disease with heart failure; I50.9 Heart failure, unspecified; I48.0 Paroxysmal atrial fibrillation; R63.4 Abnormal weight loss; G89.29 Other chronic pain; M19.011 Primary osteoarthritis, right shoulder; M19.012 Primary osteoarthritis, left shoulder; M62.81 Muscle weakness (generalized); F41.1 Generalized anxiety disorder; Z87.891 Personal history of nicotine dependence; Z89.511 Acquired absence of right leg below knee; Z95.0 Presence of cardiac pacemaker; Z95.820 Peripheral vascular angioplasty status with implants and grafts ==

== ENCOUNTER → 2020-12-10 | Outpatient (CLI) | payer OTHER | LOC: SJCVCIMAG 07:08 | PROVIDERS: ATTEND Emergency Medicine | DX: I70.202 Unspecified atherosclerosis of native arteries of extremities, left leg (principal); T82.898A Other specified complication of vascular prosthetic devices, implants and grafts, initial encounter; L97.828 Non-pressure chronic ulcer of other part of left lower leg with other specified severity; E78.00 Pure hypercholesterolemia, unspecified; Z79.899 Other long term (current) drug therapy; Z87.891 Personal history of nicotine dependence; Y83.2 Surgical operation with anastomosis, bypass or graft as the cause of abnormal reaction of the patient, or of later complication, without mention of misadventure at the time of the procedure; Y71.3 Surgical instruments, materials and cardiovascular devices (including sutures) associated with adverse incidents; Y92.89 Other specified places as the place of occurrence of the external cause ==

== ENCOUNTER → 2021-01-21 | Outpatient (CLI) | payer OTHER | LOC: HYPER 07:43 | PROVIDERS: ATTEND Emergency Medicine | DX: I70.248 Atherosclerosis of native arteries of left leg with ulceration of other part of lower leg (principal); L97.822 Non-pressure chronic ulcer of other part of left lower leg with fat layer exposed; I70.245 Atherosclerosis of native arteries of left leg with ulceration of other part of foot; L97.522 Non-pressure chronic ulcer of other part of left foot with fat layer exposed; I87.2 Venous insufficiency (chronic) (peripheral); I89.0 Lymphedema, not elsewhere classified; R60.0 Localized edema; E03.9 Hypothyroidism, unspecified; D45 Polycythemia vera; I11.0 Hypertensive heart disease with heart failure; I50.9 Heart failure, unspecified; I48.0 Paroxysmal atrial fibrillation; R63.4 Abnormal weight loss; G89.29 Other chronic pain; M19.011 Primary osteoarthritis, right shoulder; M19.012 Primary osteoarthritis, left shoulder; M62.81 Muscle weakness (generalized); F41.1 Generalized anxiety disorder; Z87.891 Personal history of nicotine dependence; Z89.511 Acquired absence of right leg below knee; Z95.0 Presence of cardiac pacemaker; Z95.820 Peripheral vascular angioplasty status with implants and grafts ==